=== PATIENT | female | born 1975 | race Caucasian/White ===

== ENCOUNTER 2021-02-18 14:58 | Emergency (ER) | payer SELFPAY ==
[2021-02-18 15:00] VITALS: BP 151/103; PULSE 81; RESP 18; TEMP 36.3; O2SAT 98; BMI 27.4
[2021-02-18 15:10] VITALS: O2SAT 99
--- NOTE | 2021-02-18 15:29 | EKG12_ITS ---
Test Reason : CP Blood Pressure : / mmHG Vent. Rate : 080 BPM Atrial Rate : 080 BPM P-R Int : 136 ms QRS Dur : 076 ms QT Int : 388 ms P-R-T Axes : 057 036 052 degrees QTc Int : 447 ms Normal sinus rhythm Normal ECG Confirmed by NADEEM INFANTE, ALONSO ([id number]), supervising film or videotape editor TITUS ALLEN ([id number]) on 02/20/2021 1:26:58 PM Referred By: MARTIN/KIET Confirmed By:ALONSO SILEVR MD
--- NOTE | 2021-02-18 15:34 | RAD_ITS ---
STUDY: X-RAY CHEST REASON FOR EXAM: Female, 45 years old. Chest pain TECHNIQUE: 1 view COMPARISON: None. FINDINGS: Cardiomediastinal silhouette is unremarkable. Costophrenic angles are sharp. Lungs are clear. The trachea is midline. There is no pneumothorax. The bones are grossly intact. RAD/Chest 1 View (Portable) IMPRESSION: No acute cardiopulmonary process. Electronically Signed: Ronnie Moser MD at 17:11 EST Tel , Service support ,
[2021-02-18 15:47] LABS: Absolute Lymphocyte Count 1.89 X10^3/uL (0.83-4.51); Absolute Neutrophil Count 4.2 X10^3/uL (2.0-7.7); Basophil# 0.04 X10^3/uL; Basophil% 0.6 % (0-1); Eosinophil# 0.13 X10^3/uL; Hematocrit 39.5 % (37-47); Hemoglobin 13.9 g/dL (12.0-15.0); Lymphocyte # 1.89 X10^3/ul (0.83-4.51); Lymphocyte % 28.4 % (19-41); Mean Corp Hgb Conc 35.2 g/dL (32-36); Mean Corpuscular Hgb 30.8 pg (27.0-32.0); Mean Corpuscular Volume 87.4 fL (81-99); Mean Platelet Vol. 11.1 fl (6.2-12.0); NRBC Flagged by Analyzer 0 % (0-5); Neutrophil # 4.18 X10^3/uL (2.7-7.7); Neutrophil % 62.7 % (47-70); Platelet Count 273 K/mm3 (150-450); RBC Distribution Width SD 41.1 fl (35.1-43.9); Red Blood Count 4.52 M/mm3 (4.2-5.4); White Blood Count 6.7 K/mm3 (4.4-11.0)
[2021-02-18 16:04] VITALS: BP 103/76; PULSE 73; RESP 15; O2SAT 99
[2021-02-18 16:05] LABS: AST(SGOT) 17 U/L (15-37); Alanine Aminotransfer ALT/SGPT 25 U/L (13-56); Albumin, Serum 3.9 g/dL (3.2-5.0); Alkaline Phosphatase 80 U/L (45-117); Anion Gap 7 (5-15); BUN 13 mg/dL (7-18); BUN/Creat Ratio 16.6 RATIO (10-20); Calcium,Total 9.1 mg/dL (8.5-10.1); Chloride 103 mmol/L (98-107); Creatinine, Serum 0.78 mg/dL (0.55-1.02); EST Glomerular Filtration Rate 85 mL/min (>60); Est Glom Filt Rate - Afr Amer 103 mL/min (>60); Estimated Creatinine Clearance 80.31 ml/min; Globulin 3.9 g/dL (2.2-4.2); Glucose 114 mg/dL (74-106); Potassium 3.5 mmol/L (3.5-5.1); Protein, Total 7.8 g/dL (6.4-8.2); Sodium Level 138 mmol/L (136-145)
--- NOTE | 2021-02-18 16:10 | EDS_ITS ---
HPI History of Present Illness Chief Complaint: Shortness of Breath Informant: patient Narrative Narrative: 45-year-old female states that since she has had COVID she has not felt right. But the past couple days she has felt her heart beating slower and stronger. Episodes lasting 20 to 30 minutes. She had that yesterday as well as this morning. She has had a persistent headache. She notes 1 episode of diarrhea this morning. She states that today while walking through [employer] she began to have a upper left chest discomfort that radiated to her arm that made her numb arm feel like the pain you get before goes to sleep. States those symptoms are better. Former smoker. She denies any leg swelling. No significant cough. No vomiting. Patient does note that she has been under significant amount of stress recently. PFSH PFSH Home Medications Serenity 180 mg PO/SL 02/18/21 [History Last Taken Unknown] Allergy/AdvReac Type Severity Reaction Status Date / Time Penicillins AdvReac Anaphylaxis Verified 02/18/21 15:07 Sulfa (Sulfonamide AdvReac Hives Verified 02/18/21 15:07 Antibiotics) sulfamethoxazole AdvReac Hives Verified 02/18/21 15:07 [From Bactrim] trimethoprim [From Bactrim] AdvReac Hives Verified 02/18/21 15:07 Social History Smoking Status: Former smoker ROS ROS ED Constitutional Constitutional ED: Denies chills or weight loss Eyes Eyes: Denies change in vision or diplopia ENT ENT ED: Denies ear pain, rhinorrhea or sore throat Cardiovascular Cardiovascular: Reports chest pain and palpitations; Denies orthopnea or racing heartbeat Respiratory/Chest Respiratory/Chest: Denies cough, dyspnea or orthopnea Gastrointestinal Gastrointestinal: Denies abdominal pain, diarrhea, nausea or vomiting Genitourinary Genitourinary ED: Denies dysuria, hematuria or urinary frequency Musculoskeletal Musculoskeletal: Reports other Details: Left arm pain ; Denies arthralgias or myalgias Integumentary Denies abscess or rash Neurologic Neurologic: Denies headache(s) or weakness Psychiatric Psychiatric: Denies anxiety, depression, suicidal ideation or suicidal thoughts Endocrine Endocrinology: Denies polydipsia, polyphagia or polyuria Allergic/Immunologic Allergic/Immunologic ED: Denies mouth swelling, tongue swelling or urticaria EXAM Physical Exam Const Vital Signs: 02/18/21 15:00 02/18/21 15:10 02/18/21 16:04 Temperature 97.4 F L Temperature Source Temporal Pulse Rate 81 73 Respiratory Rate 18 15 Respiratory Effort Normal Non-Labored Respiratory Depth Normal Respiratory Pattern Normal Blood Pressure 151/103 H 103/76 Blood Pressure Mean 119 85 Pulse Ox 98 99 Oxygen Delivery Method Room Air Room Air Room Air 02/18/21 17:07 Temperature Temperature Source Pulse Rate 74 Respiratory Rate 14 Respiratory Effort Respiratory Depth Respiratory Pattern Blood Pressure 120/84 H Blood Pressure Mean 96 Pulse Ox 98 Oxygen Delivery Method Room Air Positive well nourished and well developed General Appearance ED: well developed HEENT Reports normocephalic, head/scalp atraumatic, TM's clear and moist mucous membranes Negative for trauma Tympanic Membrane ED: Yes TM's clear Eyes PERRL and EOMs intact bilaterally Neck no lymphadenopathy, supple and no JVD Resp normal respiratory effort and clear to auscultation bilaterally Cardio regular rate, regular rhythm and no murmurs GI normal to inspection, nondistended, normoactive bowel sounds and non-tender Palpation: soft Back/Spine no CVA tenderness and normal ROM Extremity normal to inspection General Extremety ED: Negative for edema General Extremity: Negative for edema Neuro oriented x3 and CN's II-XII intact bilaterally Sensorium / Orientation: alert Motor Exam: strength 5/5 throughout Psych mental status grossly normal Mood & Affect: Negative for depressed or tearful Skin no rashes or lesions noted and no wounds MDM MDM MDM Narrative Medical decision making narrative: 2 sets of heart enzymes negative. D-dimer 0.32. CBC CMP showed a glucose of 114. Interpretation of chest x-ray is no acute process. She had no events on the monitor. At this point I think the patient can be discharged home. She does mention to me now that she had an echocardiogram about 14 years ago that showed mitral valve prolapse. Advised her since she may wish to have a repeat echo and possibly Holter monitor which she has done before. She is going to follow-up with her mom's primary care doctor or with cardiology. Lab Data Attestation: I reviewed the patient's lab results. Labs: Laboratory Results - last 24 hr 02/18/21 02/18/21 02/18/21 15:07 15:07 15:07 WBC 6.7 RBC 4.52 Hgb 13.9 Hct 39.5 MCV 87.4 MCH 30.8 MCHC 35.2 RDW Std Deviation 41.1 RDW Coeff of [place] 13.0 Plt Count 273 MPV 11.1 Immature Gran % (Auto) 0.300 Neut % (Auto) 62.7 Lymph % (Auto) 28.4 [place] % (Auto) 6.0 Eos % (Auto) 2.0 Baso % (Auto) 0.6 Absolute Neuts (auto) 4.2 Absolute Lymphs (auto) 1.89 Nucleated RBC % 0 D-Dimer Quant (PE/DVT) 0.32 Sodium 138 Potassium 3.5 Chloride 103 Carbon Dioxide 28.0 Anion Gap 7 BUN 13 Creatinine 0.78 Estim Creat Clear Calc 80.31 Est GFR (MDRD) Af Amer 103 Est GFR (MDRD) Non-Af 85 BUN/Creatinine Ratio 16.6 Glucose 114 H Calcium 9.1 Total Bilirubin 0.40 AST 17 ALT 25 Alkaline Phosphatase 80 Troponin I High Sens Total Protein 7.8 Albumin 3.9 Globulin 3.9 Albumin/Globulin Ratio 1.0 02/18/21 02/18/21 15:07 17:06 WBC RBC Hgb Hct MCV MCH MCHC RDW Std Deviation RDW Coeff of [place] Plt Count MPV Immature Gran % (Auto) Neut % (Auto) Lymph % (Auto) [place] % (Auto) Eos % (Auto) Baso % (Auto) Absolute Neuts (auto) Absolute Lymphs (auto) Nucleated RBC % D-Dimer Quant (PE/DVT) Sodium Potassium Chloride Carbon Dioxide Anion Gap BUN Creatinine Estim Creat Clear Calc Est GFR (MDRD) Af Amer Est GFR (MDRD) Non-Af BUN/Creatinine Ratio Glucose Calcium Total Bilirubin AST ALT Alkaline Phosphatase Troponin I High Sens < 3 L < 3 L Total Protein Albumin Globulin Albumin/Globulin Ratio Radiography Diagnostic Testing: Clinical Impression(s) from Imaging Studies Chest X-Ray 02/18/21 15:34 IMPRESSION: No acute cardiopulmonary process. Electronically Signed: Ronnie Moser MD at 17:11 EST Tel , Service support , EKG Initial EKG: Attestation: I personally reviewed and interpreted this EKG as follows: Comments: Normal sinus rhythm with a ventricular rate of 80 bpm Discharge Plan Triage Chief Complaint: Shortness of Breath ED Provider: Jeffry Thompson Dx/Rx/DC Orders Clinical Impression: Chest pain, Heart palpitations Instructions: ED Palpitations Prescriptions: No Action Serenity 180 mg PO/SL RF: 0 Primary Care Provider: Care Physician,No Primary Referrals: Schuyler Vizcarra MD [STAFF PHYSICIAN] - As soon as possible (for cardiology follow up) Care Physician,No Primary [Primary Care Provider] - Disposition Disposition: Home, Self Care
[2021-02-18 16:32] LABS: Troponin-I HS < 3 pg/mL (3.0-54.0)
[2021-02-18 16:34] LABS: D-Dimer Quantitative (DVT/PE) 0.32 FEU/ug/m (0.27-0.49)
[2021-02-18 17:07] VITALS: BP 120/84; PULSE 74; RESP 14; O2SAT 98
[2021-02-18 17:32] LABS: Troponin-I HS < 3 pg/mL (3.0-54.0)
[2021-02-18 17:47] VITALS: BP 129/98; PULSE 78; RESP 24; O2SAT 99
== END 2021-02-18 17:52 | disposition home or self-care (01) ==
PROVIDERS: Emergency Provider Emergency Medicine; Visit Provider Emergency Medicine
DX: R07.9 Chest pain, unspecified (principal); R00.2 Palpitations; R06.02 Shortness of breath; Z87.891 Personal history of nicotine dependence
CPT/HCPCS: 36415; 71045; 80053; 84484; 85025; 85379; 93005; 99283; A4216

== ENCOUNTER 2022-11-17 12:11 | Emergency (ER) | payer OTHER, SELFPAY ==
[2022-11-17 12:11] VITALS: BP 139/85; PULSE 95; RESP 22; TEMP 36.4; O2SAT 100; BMI 28.3
--- NOTE | 2022-11-17 12:25 | CT_ITS ---
EXAM: CT ABDOMEN AND PELVIS WITHOUT INTRAVENOUS CONTRAST CLINICAL INDICATION: right flank pain. PRIOR TUBIAL LIGATION TECHNIQUE: Helically acquired images were obtained of the abdomen and pelvis without intravenous contrast. This CT exam was performed using one or more of the following dose reduction techniques: automated exposure control, adjustment of the mA and/or kV according to patient size, and/or use of iterative reconstruction technique. COMPARISON: No relevant prior studies available. FINDINGS: LOWER THORAX: Normal. Lung bases are clear. No cardiomegaly. No pericardial effusion. ABDOMEN: LIVER: Normal. Homogeneous. PANCREAS: Normal. No focal cystic mass. SPLEEN: Normal. Normal size without focal cystic or solid mass. ADRENALS: Normal. No nodules. KIDNEYS AND URETERS: Several punctate stones noted within the left kidney. No evidence of urinary tract obstruction. 3.2 cm right adnexal lesion which appears to contain a hematocrit level suggestive of hemorrhagic ovarian cyst. STOMACH AND BOWEL: Normal. No bowel distention. No focal inflammatory change. PELVIS: APPENDIX: Appendix is visualized and normal in appearance. BLADDER: Normal. REPRODUCTIVE: See above. ABDOMEN and PELVIS: INTRAPERITONEAL SPACE: Physiological amount of free fluid noted within the pelvis. No free air. BONES/JOINTS: No suspicious lytic or blastic abnormality. SOFT TISSUES: Normal. No discrete abdominal or pelvic wall hernia. VASCULATURE: Normal. Abdominal aorta is non-dilated. LYMPH NODES: Normal. No enlarged lymph nodes. CT/Abdomen/Pelvis without Cont IMPRESSION: 1. No evidence of urinary tract stone disease. 2. 3.2 cm right adnexal lesion suggestive of hemorrhagic ovarian cyst. 3. Normal appendix. Electronically Signed: Maurice Kumar MD at 14:17 EDT ,
--- NOTE | 2022-11-17 12:26 | EX.ED.DYSGE1 ---
HPI History of Present Illness Chief Complaint: Flank Pain Informant: patient Onset/Context/Timing Onset: Yesterday Context: Gradual Onset Timing: Waxes and wanes Narrative Narrative: Patient presents secondary to right flank pain and low-grade fever that started yesterday. She does have a history of prior kidney stone. She denies dysuria. No significant cough or congestion. [facility] Medical History (Updated 11/17/22 @ 15:[address] Janine Paris MD) Kidney stone Home Medications Serenity 180 mg PO/SL 02/18/21 [History Last Taken Unknown] hydrocodone-acetaminophen 5-325mg 5mg-325mg 1 tab PO Q6H PRN PRN Pain 3 days #12 TABLETS 11/17/22 [Rx Last Taken Unknown] Allergy/AdvReac Type Severity Reaction Status Date / Time ibuprofen Allergy Intermediate EDEMA Verified 11/17/22 12:13 Latex, Natural Rubber Allergy Intermediate RASH Verified 11/17/22 12:13 Penicillins AdvReac Anaphylaxis Verified 02/18/21 15:07 Sulfa (Sulfonamide AdvReac Hives Verified 02/18/21 15:07 Antibiotics) sulfamethoxazole AdvReac Hives Verified 02/18/21 15:07 [From Bactrim] trimethoprim [From Bactrim] AdvReac Hives Verified 02/18/21 15:07 Surgical History History of tubal ligation Social History Smoking Status: Former smoker ROS ROS ED Constitutional Constitutional ED: Reports fever(s); Denies chills Eyes Eyes: Denies discharge from eye(s) ENT ENT ED: Denies discharge from eye(s), rhinorrhea or sore throat Cardiovascular Cardiovascular: Denies chest pain Respiratory/Chest Respiratory/Chest: Denies cough or dyspnea Gastrointestinal Gastrointestinal: Reports abdominal pain, nausea and vomiting; Denies diarrhea Genitourinary Genitourinary ED: Denies dysuria Musculoskeletal Musculoskeletal: Reports back pain and myalgias; Denies extremity pain Integumentary Denies Abrasions or rash Neurologic Neurologic: Denies headache(s) or weakness Psychiatric Psychiatric: Denies anxiety or depression Allergic/Immunologic Allergic/Immunologic ED: Denies lip swelling or urticaria EXAM Physical Exam Const Vital Signs: 11/17/22 12:11 11/17/22 15:10 Temperature 97.6 F L Temperature Source Temporal Pulse Rate 95 77 Respiratory Rate 22 H 16 Blood Pressure 139/85 H 113/82 H Blood Pressure Mean 103 92 Pulse Ox 100 98 Oxygen Delivery Method Room Air Room Air Positive well nourished and well developed General Appearance ED: well developed HEENT Reports normocephalic and head/scalp atraumatic Eyes PERRL and EOMs intact bilaterally Neck supple Chest Wall inspection of chest normal and palpation of chest normal Resp normal respiratory effort and clear to auscultation bilaterally Cardio regular rate and regular rhythm GI non-tender Auscultation: hypoactive bowel sounds Palpation: soft Back/Spine General Back: CVA tenderness right Extremity normal to inspection Neuro oriented x3 and no sensory deficits noted Sensorium / Orientation: alert Motor Exam: strength 5/5 throughout Psych mental status grossly normal Skin no rashes or lesions noted MDM MDM MDM Narrative Medical decision making narrative: IV line established. Patient given morphine and Zofran for pain and nausea. Labwork obtained to evaluate for leukocytosis, anemia, and electrolyte derangement. Urinalysis obtained to evaluate for infection/hematuria. CT flank obtained to evaluate for possible kidney stone versus pyelonephritis. History & Record Review Discussion w/independent historian: Patient and Family Lab Data Attestation: I reviewed the patient's lab results. Labs: Laboratory Results - last 24 hr 11/17/22 11/17/22 12:35 14:00 WBC 5.0 RBC 4.44 Hgb 13.6 Hct 41.6 MCV 93.7 MCH 30.6 MCHC 32.7 RDW Std Deviation 43.0 RDW Coeff of [place] 12.6 Plt Count 164 MPV 11.1 Immature Gran % (Auto) 0.800 Neut % (Auto) 69.6 Lymph % (Auto) 14.7 L [place] % (Auto) 14.1 H Eos % (Auto) 0.4 Baso % (Auto) 0.4 Absolute Neuts (auto) 3.5 Absolute Lymphs (auto) 0.73 L Nucleated RBC % 0 Sodium 133 L Potassium 3.7 Chloride 102 Carbon Dioxide 26.0 Anion Gap 5 BUN 11 Creatinine 0.72 Estim Creat Clear Calc 85.20 Est GFR (MDRD) Af Amer 112 Est GFR (MDRD) Non-Af 93 BUN/Creatinine Ratio 15.3 Glucose 85 Calcium 8.9 Serum , Qual NEGATIVE Urine Color Yellow Urine Clarity Clear Urine pH 5.0 Ur Specific [place] 1.025 Urine Protein 30 H Urine Glucose (UA) Normal Urine Ketones 50 H Urine Occult Blood 10 H Urine Nitrite Negative Urine Bilirubin Negative Urine Urobilinogen Normal Ur Leukocyte Esterase Negative Urine RBC 0 SEEN Urine WBC 0-5 SEEN Ur Squamous Epith Cells 0-5 SEEN Urine Bacteria 0 SEEN Urine Mucus 0 SEEN Radiography Diagnostic Testing: Clinical Impression(s) from Imaging Studies Abdomen/Pelvis CT 11/17/22 12:25 IMPRESSION: 1. No evidence of urinary tract stone disease. 2. 3.2 cm right adnexal lesion suggestive of hemorrhagic ovarian cyst. 3. Normal appendix. Electronically Signed: Maurice Kumar MD at 14:17 EDT , Treatment and Re-Evaluation :: Patient given morphine and Zofran along with IV fluids. COVID test returns positive. CBC was normal white count at 5.0 with a normal differential. Chemistry studies unremarkable. test negative. Urinalysis reveals no evidence of infection and no hematuria. CT flank reveals no evidence of urinary tract stone disease. A few small stones are noted in the left kidney. There is a 3.2 cm right adnexal lesion to the hemorrhagic cyst. I do believe this is the source of the patient's pain. Test results are discussed with her and significant other at bedside. She will be given a prescription for [place] at home. She will continue supportive care. Discharge Plan Triage Chief Complaint: Flank Pain ED Provider: Janine Paris Dx/Rx/DC Orders Clinical Impression: COVID-19, Ovarian cyst Instructions: Coronavirus Disease 2019 (COVID-19): Overview, Coronavirus Disease 2019 (COVID-19): Caring for Yourself or Others, ED Ovarian Cyst Prescriptions: New hydrocodone-acetaminophen 5-325 mg tablet 1 tab PO Q6H PRN PRN (Reason: Pain) 3 Days Qty: 12 0RF No Action Serenity 180 mg PO/SL Primary Care Provider: Care Physician,No Primary Referrals: Delfina Serrano MD [Med Staff - Project Accountant] - As Needed Care Physician,No Primary [Primary Care Provider] - Disposition Disposition: Home, Self Care
[2022-11-17 12:42] LABS: Absolute Lymphocyte Count 0.73 X10^3/uL (0.83-4.51); Absolute Neutrophil Count 3.5 X10^3/uL (2.0-7.7); Basophil# 0.02 X10^3/uL; Basophil% 0.4 % (0-1); Eosinophil# 0.02 X10^3/uL; Eosinophils% 0.4 % (0-5); Hematocrit 41.6 % (37-47); Hemoglobin 13.6 g/dL (12.0-15.0); Lymphocyte # 0.73 X10^3/ul (0.83-4.51); Lymphocyte % 14.7 % (19-41); Mean Corp Hgb Conc 32.7 g/dL (32-36); Mean Corpuscular Hgb 30.6 pg (27.0-32.0); Mean Corpuscular Volume 93.7 fL (81-99); Mean Platelet Vol. 11.1 fl (6.2-12.0); Monocyte% 14.1 % (0-10); NRBC Flagged by Analyzer 0 % (0-5); Neutrophil # 3.45 X10^3/uL (2.7-7.7); Neutrophil % 69.6 % (47-70); Platelet Count 164 K/mm3 (150-450); RBC Distribution Width CV 12.6 % (11.6-14.6); Red Blood Count 4.44 M/mm3 (4.2-5.4)
[2022-11-17] MEDS: 0.9% Normal Saline (1000mL) 1,000 ML 150 ML IV (12:48)
[2022-11-17] MEDS: Morphine 4 MG/ML Syringe IV (12:49)
[2022-11-17] MEDS: Ondansetron 4 MG/2 ML Vial IV (12:49)
[2022-11-17 12:57] LABS: Anion Gap 5 (5-15); BUN 11 mg/dL (7-18); BUN/Creat Ratio 15.3 RATIO (10-20); Calcium,Total 8.9 mg/dL (8.5-10.1); Chloride 102 mmol/L (98-107); Creatinine, Serum 0.72 mg/dL (0.55-1.02); EST Glomerular Filtration Rate 93 mL/min (>60); Est Glom Filt Rate - Afr Amer 112 mL/min (>60); Glucose 85 mg/dL (74-106); Potassium 3.7 mmol/L (3.5-5.1); Sodium Level 133 mmol/L (136-145)
[2022-11-17 12:59] LABS: Internal QC Validated? YES +Cl - CLEAR BKGD; Pregnancy, Serum, hCG Quali. NEGATIVE Negative; Record Kit Lot#, Serum Preg. 667200
[2022-11-17 14:08] LABS: Bacteria 0 SEEN /hpf (None Seen); Mucous, Urine 0 SEEN /hpf (<or=2+); Red Blood Cells-Urine 0 SEEN /hpf (0-5)
[2022-11-17 14:16] LABS: Color, Urine Yellow (Yellow); Glucose, Dipstick Normal (Normal); Ketone-Dipstick 50 mg/dl (Negative); Leukocyte Esterase-Dipstick Negative /ul (Negative); Nitrite-Dipstick Negative (Negative); Occult Blood-Urine 10 /ul (Negative); Protein-Dipstick 30 mg/dl (Negative); Specific Gravity, Urine 1.025 (1.002-1.030); Urine Bilirubin Dipstick Negative (Negative); Urine Clarity Clear (Clear); Urine Urobilinogen Normal (Normal)
[2022-11-17 14:41] LABS: Squamous Epithelial Cells - UA 0-5 SEEN /hpf (5-10); White Blood Cells 0-5 SEEN /hpf (0-5)
[2022-11-17 15:10] VITALS: BP 113/82; PULSE 77; RESP 16; O2SAT 98
== END 2022-11-17 15:22 | disposition home or self-care (01) ==
PROVIDERS: Emergency Provider Emergency Medicine; Visit Provider Emergency Medicine
DX: N83.201 Unspecified ovarian cyst, right side (principal); U07.1 COVID-19; Z87.891 Personal history of nicotine dependence; Z87.442 Personal history of urinary calculi
CPT/HCPCS: 74176; 80048; 81001; 84703; 85025; 87428; 96361; 96374; 96375; 99283; J2405

== ENCOUNTER → 2022-12-16 | Outpatient (CLI) | payer OTHER, SELFPAY ==
[2022-12-16 12:44] LABS: HIV - WCH Non-Reactive (Nonreactive); Hepatitis C Antibody Non-Reactive (Nonreactive); Syphilis Antibodies Non-reactive
[2022-12-18 21:07] LABS: Chlamydia By Nucleic Acid AMP Negative (Negative); Gonococcus By Nucleic Acid AMP Negative (Negative)
[2022-12-20 14:09] LABS: HPV APTIMA, High Risk Negative (Negative)
== END | disposition home or self-care (01) ==
PROVIDERS: Referring Provider Nurse Practitioner Women's Health; Visit Provider Nurse Practitioner Women's Health
DX: Z12.4 Encounter for screening for malignant neoplasm of cervix (principal); A60.00 Herpesviral infection of urogenital system, unspecified; Z20.2 Contact with and (suspected) exposure to infections with a predominantly sexual mode of transmission
CPT/HCPCS: 36415; 86703; 86780; 86803; 87491; 87591; 87624; 88175; G0145

== ENCOUNTER → 2022-12-23 | Outpatient (CLI) | payer OTHER, SELFPAY ==
--- NOTE | 2022-12-23 07:14 | BI_ITS ---
MAMMOGRAPHY - BILATERAL SCREENING REASON FOR EXAM: Female, 47 years old. Routine annual screening examination. PERTINENT HISTORY: Non-contributory. History of prior left excisional breast biopsy. TECHNIQUE: Digital bilateral breast dheeraj (3D mammographic acquisition) in the CC and MLO projections. 2-D mediolateral oblique (MLO) and craniocaudad (CC) views of both breasts were obtained. CAD: Full Field Digital Mammography with Computer Added Detection was performed. COMPARISON: No comparison mammograms available at this time. If any prior films become available, an addendum to this report can be generated. FINDINGS: Breast Composition: The breasts are extremely dense, which lowers the sensitivity of mammography. There are no dominant masses or suspicious calcifications. Small benign-appearing fat-containing axillary lymph nodes. No other significant abnormalities are identified. BI/SCRN MAMM (CAD)W/DHEERAJ BILAT IMPRESSION: Negative screening mammogram. Yearly followup mammogram recommended. (A) ASSESSMENT CATEGORY: BIRADS Category 2: Benign. A letter regarding these results will be sent to the patient by the facility within 30 days. Approximately 10% of breast cancers are not detected by mammography. A normal mammogram should not delay biopsy of a clinically suspicious abnormality. [id number] Electronically Signed: Ja Real MD at 8:42 EST ,
[2022-12-23 08:31] LABS: Cholesterol 227 mg/dL (200); Glucose 99 mg/dL (74-106); High Density Lipoprotein 56 mg/dL; Thyroid Stim Hormone (TSH) 0.85 uIU/mL (0.358-3.74); Triglycerides 94 mg/dL; Very Low Density Lipoprotein 19 mg/dL (5-40)
[2022-12-23 09:58] LABS: Vitamin D,25 Hydroxy 37.2 ng/mL
== END | disposition home or self-care (01) ==
PROVIDERS: Referring Provider Nurse Practitioner Women's Health; Visit Provider Nurse Practitioner Women's Health
DX: Z12.31 Encounter for screening mammogram for malignant neoplasm of breast (principal); Z13.220 Encounter for screening for lipoid disorders; Z13.29 Encounter for screening for other suspected endocrine disorder; Z13.21 Encounter for screening for nutritional disorder; Z13.1 Encounter for screening for diabetes mellitus
CPT/HCPCS: 36415; 77063; 77067; 80061; 82306; 82947; 84443

== ENCOUNTER → 2023-01-08 | Outpatient (CLI) | payer OTHER, SELFPAY ==
--- NOTE | 2023-01-08 12:47 | US_ITS ---
INDICATION: pain EXAMINATION: Ultrasound US Pelvis Non OB Limited With Transvaginal Imaging TECHNIQUE: Transabdominal pelvic ultrasound was performed. Grayscale, spectral waveform, and color flow Doppler evaluation of the adnexa. COMPARISON: CT abdomen and pelvis November 17, 2022. FINDINGS: UTERUS: The uterus measures 6.1 x 8.0 x 11.2 cm for total volume of 287 mL. Heterogeneous myometrium throughout with a left, fundal, heterogeneous, mildly hyperechoic mass measuring 2.2 x 2.5 x 2.4 cm consistent with a myometrial fibroid. No other well delineated fibroids demonstrated. The endometrial stripe measures 8 mm in AP diameter which is within normal limits. RIGHT OVARY: 3.5 x 2.2 x 2.3 cm.. Non-enlarged, normal echogenicity. Note of a dominant, 1.9 x 1.6 x 1.8 cm anechoic follicle. There is normal arterial inflow and venous outflow present in the right ovary. LEFT OVARY: Only visualized on transabdominal images. 4.2 x 1.6 x 1.1 cm. Non-enlarged, normal echogenicity. There is normal arterial inflow and venous outflow present in the left ovary. FREE FLUID: None. Urinary bladder is filled with anechoic fluid and normal in appearance. US/Pelvic (Non ) IMPRESSION: 1. Mildly enlarged uterus, 287 mL volume with a single, visualized, roughly 2.4 cm myometrial fibroid. 2. Physiologic appearance bilateral ovaries. Electronically Signed: Alvin Bajwa DO at 23:50 EST ,
== END | disposition home or self-care (01) ==
PROVIDERS: Referring Provider Nurse Practitioner Women's Health; Visit Provider Nurse Practitioner Women's Health
DX: R10.2 Pelvic and perineal pain (principal)
CPT/HCPCS: 76830; 76856

== ENCOUNTER → 2023-02-26 | Outpatient (CLI) | payer OTHER, SELFPAY ==
--- OUTSIDE RECORDS SUMMARY | 2023-02-26 11:56 | XMS RPT_ITS | CCD ---
Author Name Unknown Address [id number] [facility] [address] [place] [address] Organization [facility] Care Team Providers Care Talent Acquisition Program Manager Name Role Phone Jer Peña MD Unavailable [phone] Unavailable Primary Care Provider Unavailabl e Allergies Allergy Classification Reported Allergen(s) Allergy Type Date of Onset Reaction(s) Facility (1 source) Diclofenac Drug Allergy 0 [facility] Work Phone: (1 source) House dust mite; Translations: [DUST MITES] allergy to substance 0 [facility] Work Phone: (1 source) Mold Extract Drug Allergy 0 [facility] Work Phone: (1 source) Penicillin Drug Allergy 0 [facility] Work Phone: (1 source) Sulfacetamide Drug Allergy 0 [facility] Work Phone: (1 source) Ibuprofen Drug Allergy 3 Swelling [facility] (1 source) Latex Drug Allergy 3 Rash [facility] (1 source) Penicillin G Drug Allergy 3 Anaphylaxis [facility] (1 source) Penicillin V Drug Allergy 2 Anaphylaxis [facility] (1 source) Sulfonamides (Antibiotic) Drug Allergy 3 Anaphylaxis [facility] Medications Completed/Discontinued Medications Medication Drug Class(es) Dates Sig (Normalized) Sig (Original) ASPIRIN-ACETAMINO PHEN-CAFFEINE TABS (1 source) Platelet Aggregation Inhibitor, Nonsteroidal Anti-inflammatory Drug, Central Nervous System Stimulant, Methylxanthine Start: 04-21-2019 EXCEDRIN EXTRA STRENGTH TABS two tablets twice per day as needed ASPIRIN-ACETAMINOP HEN-CAFFEINE TABS [id number] Jer Peña MD meloxicam 7.5 mg oral tablet (1 source) Nonsteroidal Anti-inflammatory Drug Start: 04-21-2019 MELOXICAM 7.5 MG TABS one tablet daily MELOXICAM [id number] Jer Peña MD Problems Active Problems Problem Classification Problem Date Documented Da te Episodic/Chronic Abdominal pain (1 source) Flank pain; Translations: [Unspecified abdominal pain] 11-17-2022 Episodic Spondylosis; intervertebral disc disorders; other back problems (1 source) Low back pain; Translations: [Low back pain without sciatica, unspecified back pain laterality, unspecified chronicity] 11-17-2022 Episodic Sprains and strains (1 source) Other specified sprain of left wrist, initial encounter; Translations: [Other specified sprain of left wrist, initial encounter] Onset: 04-21-2019 04-21-2019 Episodic Past or Other Problems Problem Classification Problem Date Documented Da te Episodic/Chronic Unclassified (1 source) Problem Results Test Name Value Interpretation Reference Range Facil ity Vital Signs Date Time Vital Sign Value Performing Clinician Facility 11-17-2022 11:55-0400 Body temperature 100.71 [degF] Ange Vargas APRN.CNP Work Phone: [facility] 11-17-2022 11:55-0400 Body weight 74.3 kg Ange Vargas APRN.OCCUPATIONAL SAFETY SPECIALIST Work Phone: [facility] 11-17-2022 11:55-0400 Diastolic blood pressure 80 mm[Hg] Ange Vargas APRN.CNP Work Phone: [facility] 11-17-2022 11:55-0400 Heart rate 97 /min Ange Vargas APRN.OCCUPATIONAL SAFETY SPECIALIST Work Phone: [facility] 11-17-2022 11:55-0400 Respiratory rate 21 /min Ange Vargas APRN.OCCUPATIONAL SAFETY SPECIALIST Work Phone: [facility] 11-17-2022 11:55-0400 SaO2% (BldA) [Mass fraction] 98 % Ange Sam REN.OCCUPATIONAL SAFETY SPECIALIST Work Phone: [facility] 11-17-2022 11:55-0400 Systolic blood pressure 128 mm[Hg] Ange Vargas APRN.OCCUPATIONAL SAFETY SPECIALIST Work Phone: [facility] NEGATED: Highlighted [id number] 09:30-0400 BMI (Body Mass Index) 26.01 kg/m2 Bharat Vernon COMPUTERIZED TABLE CUTTER [facility] Work Phone: NEGATED: Highlighted [id number] 09:30-0400 Body weight 68.49 kg Bharat Vernon COMPUTERIZED TABLE CUTTER [facility] Work Phone: NEGATED: Highlighted [id number] 09:30-0400 Body weight 69 kg Bharat Vernon COMPUTERIZED TABLE CUTTER [facility] Work Phone: NEGATED: Highlighted [id number] 09:30-0400 BP Diastolic 98 mm[Hg] Bharat Vernon COMPUTERIZED TABLE CUTTER [facility] Work Phone: NEGATED: Highlighted [id number] 09:30-0400 BP Diastolic 89 mm[Hg] Bharat Saulo COMPUTERIZED TABLE C[employer] [facility] Work Phone: NEGATED: Highlighted [id number] 09:30-0400 BP Systolic 136 mm[Hg] Bharat Vernon COMPUTERIZED TABLE C[employer]TER [facility] Work Phone: NEGATED: Highlighted [id number] 09:30-0400 BP Systolic 129 mm[Hg] Bharat Vernon COMPUTERIZED TABLE C[employer]TER [facility] Work Phone: NEGATED: Highlighted [id number] 09:30-0400 Height 162.56 cm Bharat Vernon COMPUTERIZED TABLE C[employer]TER [facility] Work Phone: NEGATED: Highlighted [id number] 09:30-0400 Height 163 cm Bharat Vernon COMPUTERIZED TABLE C[employer]TER [facility] Work Phone: NEGATED: Highlighted [id number] 09:30-0400 Pulse (Heart Rate) 81 /min Bharat Vernon LPN [facility] Work Phone: Encounters Encounter Date Encounter Type Care Provider Facility Start: 11-17-2022 End: 11-17-2022 ambulatory Facility:[facility] Start: 11-17-2022 End: 11-17-2022 Patient encounter procedure Ange Vargas APRN.OCCUPATIONAL SAFETY SPECIALIST Work Phone: [facility] Procedures Date Procedure Procedure Detail Performing Clinician Start: 11-17-2022 Urnls dip stick/tabl et rgnt auto w/o microscopy nAge Vargas APRN.OCCUPATIONAL SAFETY SPECIALIST Work Phone: NEGATED: Highlighted rowStart: 04-21-2019 End: 04-21-2019 Documentation of current medications Bharat Vernon LPN NEGATED: Highlighted rowStart: 04-21-2019 End: 04-21-2019 Smoking cessation education Bharat Vernon LPN Plan of Treatment Date Care Activity Detail Author Start: 10-11-2022 Influenza vaccination Influenza Vaccine (#1) [facility] Start: 2022 Cologuard (FIT-DNA) Cologuard (FIT-DNA) [facility] Start: 2022 Colonoscopy Colonoscopy [facility] Start: 2022 Colorectal Cancer Screening Colorectal Cancer Screening [facility] Start: [address] COLONOGRAPHY [facility] Start: 2022 Diabetes Screening Diabetes Screening [facility] Start: 2022 Fecal Occult Blood Fecal Occult Blood [facility] Start: 2022 Lipid 1996 panel - Serum or Plasma Lipid Screening [facility] Start: 2022 SIGMOIDOSCOPY SIGMOIDOSCOPY [facility] Start: 02-10-2022 Depression Assessment Depression Assessment [facility] Start: 04-21-2019 End: 04-21-2019 Appointment Appointment [facility] Work Phone: Start: 04-21-2019 End: 04-21-2019 Radex wrist complete minimum 3 views XR WRIST 3 VWS-LT [facility] Work Phone: Start: 2017 Mammography Mammogram Screening [facility] Start: 04-18-2007 HPV Testing HPV Testing [facility] Start: 1998 Pap Testing Pap Testing [facility] Start: 1996 Urine microalbumin profile DTaP,Tdap,Td Vaccine (1 - Tdap) [facility] Start: 04-18-1995 Hepatitis C Screening Hepatitis C Screening [facility] Start: 04-18-1995 HIV Screening HIV Screening [facility] Start: 04-18-1983 Pneumococcal vaccination Pneumococcal Vaccine (1 - PCV) [facility] Start: 1977 Covid-19 Vaccine (#1) Covid-19 Vaccine (#1) [facility] Start: 1977 Hepatitis B Vaccine (1 of 3 - 3-dose series) Hepatitis B Vaccine (1 of 3 - 3-dose series) [facility] Patient Education \cps-sql1\CPS_ PtEducatio n\quitting_smoking_[id number].pdf, \cps-sql1\CPS_PtEducatio n\htn.pdf [facility] Work Phone: Payers Date Payer Category Payer Private Health Insurance [facility] [employer] [facility] [id number] 2022-Present [phone] [address] [place] [address] PPO [id number] 2022 Private Health Insurance [id number] Social History Date Type Detail Facility Start: 11-17-2022 Tobacco smoking status NHIS Smokes tobacco daily [facility] History of tobacco use Cigarette Smoker [facility] History of tobacco use Passive smoker [facility] Start: 11-17-2022 Tobacco use and exposure Smokeless tobacco non-user [facility] Start: 11-17-2022 History of Social function [facility] Start: 11-17-2022 Tobacco use panel [facility] Start: 1975 Sex Assigned At Not on file [facility] NEGATED: Highlighted rowStart: 04-21-2019 End: 04-21-2019 Alcohol use Alcohol use [facility] Work Phone: NEGATED: Highlighted rowStart: 04-21-2019 End: 04-21-2019 Assertion Current every day smoker [facility] Work Phone: NEGATED: Highlighted rowStart: 04-21-2019 End: 04-21-2019 Details of drug misuse behavior Details of drug misuse behavior [facility] Work Phone: NEGATED: Highlighted rowStart: 04-21-2019 End: 04-21-2019 Employment detail Employment detail [facility] Work Phone: NEGATED: Highlighted rowStart: 04-21-2019 End: 04-21-2019 How many days of moderate to strenuous exercise, like a brisk walk, did you do in the last 7 days? How many days of moderate to strenuous exercise, like a brisk walk, did you do in the last 7 days? [facility] Work Phone: NEGATED: Highlighted rowStart: 04-21-2019 End: 04-21-2019 Tobacco use and exposure Tobacco use and exposure [facility] Work Phone: Progress note 11-17-2022 Note Date & Type Note Facility 11-17-2022 Note HNO ID: [id number] Author: Ange Vargas APRN.OCCUPATIONAL SAFETY SPECIALIST Service: ? Author Type: Nurse Practitioner Type: Progress Notes Filed: 11/17/2022 12:07 PM Note Text: Came in with complaints of right flank pain. Patient has had kidney infections before. Patient says it feels the same. Patient says its only been going on for about a day but she does have a fever and she is vomiting. Barely touched patient's back and she was in extreme pain. At this time she is being sent to the emergency room for full evaluation partner will take her. Also instructed her to get set up with a urologist or kidney doctor up here and primary care. [facility] [place] History of Present illness Narrative 11-17-2022 Ange Vargas APRN.OCCUPATIONAL SAFETY SPECIALIST - 11/17/2022 12:06 PM EDT Note Date & Type Note Facility 11-17-2022 History of Presen t illness Narrative Came in with complaints of right flank pain. Patient has had kidney infections before. Patient says it feels the same. Patient says its only been going on for about a day but she does have a fever and she is vomiting. Barely touched patient's back and she was in extreme pain. At this time she is being sent to the emergency room for full evaluation partner will take her. Also instructed her to get set up with a urologist or kidney doctor up here and primary care. documented in this encounter [facility] Evaluation note Note Date & Type Note Facility documented in this encounter [facility] Chief Complaint Chief Complaint Description Start Date left wrist pain Preliminary chief co mplaint data, not yet signed by the author as of Instructions Instruction Description Start Date Please follow-up with Primar y Care Physician or Roll Icer for treatment or adjustment of medication regarding elevated blood pressure.Patient advised to follow-up with Primary Care Physician for BMI management. Advance Directives There may be information available, but it has not been provided by the sender. No Advanced Directives Records Found Assessments There may be information available, but it has not been provided by the sender. Review of System There may be information available, but it has not been provided by the sender. Family History There may be information available, but it has not been provided by the sender.No Family History Records Found History of Present Illness There may be information available, but it has not been provided by the sender. Summary Purpose Additional Source Comments Reason for Visit (unrecogniz ed section and content) Reason Comments Kidney Problem Possible kidney infe ction, lower back pain, fever, sore throat x 1 day Source Comments (unrecognize d section and content) In the event this informatio n is protected by the Federal Confidentiality of Alcohol and Drug Abuse Patient Records regulations: The Federal rules restrict any use of the information to criminally investigate or prosecute any alcohol or drug abuse patient.[facility] INFORMATION SOURCE (unrecogn ized section and content) FOR RECORDS PERTAINING TO PATIENTS WHO ARE OR HAVE BEEN ENROLLED IN A CHEMICAL DEPENDENCY/SUBSTANCEABUSE PROGRAM, SOME INFORMATION MAY BE OMITTED. This clinical summary was aggregated from multiple sources. Caution should be exercised in using it in the provision of clinical care. This summary normalizes information from multiple sources, and as a consequence, information in this document may materially change the coding, format and clinical context of patient data. In addition, data may be omitted in some cases. CLINICAL DECISIONS SHOULD BE BASED ON THE PRIMARY CLINICAL RECORDS. [employer] [facility]. provides no warranty or guarantee of the accuracy or completeness of information in this document.
[2023-02-26 15:16] LABS: Absolute Lymphocyte Count 2.04 X10^3/uL (0.83-4.51); Absolute Neutrophil Count 3.8 X10^3/uL (2.0-7.7); Basophil# 0.03 X10^3/uL; Basophil% 0.5 % (0-1); Eosinophil# 0.15 X10^3/uL; Eosinophils% 2.3 % (0-5); Hemoglobin 12.5 g/dL (12.0-15.0); Lymphocyte # 2.04 X10^3/ul (0.83-4.51); Lymphocyte % 31.2 % (19-41); Mean Corp Hgb Conc 32.1 g/dL (32-36); Mean Corpuscular Hgb 29.8 pg (27.0-32.0); Mean Corpuscular Volume 93.1 fL (81-99); Mean Platelet Vol. 11.3 fl (6.2-12.0); Monocyte# 0.53 X10^3/uL; Monocyte% 8.1 % (0-10); NRBC Flagged by Analyzer 0 % (0-5); Neutrophil # 3.75 X10^3/uL (2.7-7.7); Neutrophil % 57.3 % (47-70); Platelet Count 214 K/mm3 (150-450); RBC Distribution Width SD 44.1 fl (35.1-43.9); Red Blood Count 4.19 M/mm3 (4.2-5.4); White Blood Count 6.5 K/mm3 (4.4-11.0)
[2023-02-26 16:07] LABS: Vitamin B12 289 pg/mL (211-911); Vitamin D,25 Hydroxy 30.6 ng/mL
[2023-02-26 16:10] LABS: AST(SGOT) 17 U/L (15-37); Alanine Aminotransfer ALT/SGPT 32 U/L (13-56); Albumin, Serum 3.8 g/dL (3.2-5.0); Alkaline Phosphatase 93 U/L (45-117); Anion Gap 6 (5-15); BUN 18 mg/dL (7-18); BUN/Creat Ratio 25.8 RATIO (10-20); CRP, High Sensitivity Cardiac 2.49 mg/L; Calcium,Total 8.9 mg/dL (8.5-10.1); Chloride 107 mmol/L (98-107); EST Glomerular Filtration Rate 96 mL/min (>60); Est Glom Filt Rate - Afr Amer 116 mL/min (>60); Ferritin 20 ng/mL (8-252); Globulin 3.7 g/dL (2.2-4.2); Glucose 75 mg/dL (74-106); Magnesium 1.9 mg/dL (1.6-2.6); Potassium 3.8 mmol/L (3.5-5.1); Protein, Total 7.5 g/dL (6.4-8.2); Sodium Level 139 mmol/L (136-145); Thyroid Stim Hormone (TSH) 1.46 uIU/mL (0.358-3.74)
== END | disposition home or self-care (01) ==
LOC: MFPLAB 11:38
PROVIDERS: PCP Family Medicine; Visit Provider Family Medicine
DX: R00.2 Palpitations (principal)
CPT/HCPCS: 36415; 80053; 82306; 82607; 82728; 83735; 84443; 85025; 86141

== ENCOUNTER → 2023-04-03 | Outpatient (CLI) | payer OTHER, SELFPAY ==
--- NOTE | 2023-04-03 12:52 | ECHOD_ITS ---
Version 2 Reason For Study: PALPITATIONS Procedure This was a 2D Doppler, Color Flow transthoracic echocardiogram. Exam performed in department. Left Ventricle Normal LV size. Left ventricular systolic function is normal. The estimated ejection fraction is 60 %. Stage 1 diastolic dysfunction. No regional wall motion abnormalities noted. Right Ventricle Normal RV size. Normal systolic function. Atria Normal left atrium. Normal right atrium. Mitral Valve Normal mitral valve. Tricuspid Valve Normal tricuspid valve. Mild tricuspid valve insufficiency. Pulmonary artery systolic pressure is 30 mmHg. Aortic Valve Trisinus/trileaflet aortic valve. Pulmonic Valve Normal pulmonic valve. Great Vessels Normal aortic root. The pulmonary artery is normal size. Normal inferior vena cava. Pericardium/Pleural No pericardial effusion. MMode/2D Measurements & Calculations LVIDd: 5.5 cm IVSd: 0.85 cm Ao root diam: 3.0 cm LVIDs: 3.3 cm LVPWd: 0.85 cm RVDd: 2.8 cm FS: 39.1 % LAV(MOD-bp): 50.5 ml LVAd ap4: 25.8 cm2 LVAd ap2: 24.1 cm2 LAV(MOD-bp) Indexed: 27.8 ml/m2 LVLd ap4: 7.4 cm LVLd ap2: 7.5 cm LAV(MOD-sp2): 50.1 ml EDV(MOD-sp4): 78.1 ml EDV(MOD-sp2): 69.6 ml LAV(MOD-sp4): 50.4 ml EDV(sp4-el): 76.8 ml EDV(sp2-el): 65.8 ml LVAs ap4: 15.0 cm2 LVAs ap2: 13.8 cm2 LVLs ap4: 5.9 cm LVLs ap2: 5.6 cm ESV(MOD-sp4): 32.1 ml ESV(MOD-sp2): 29.5 ml ESV(sp4-el): 32.4 ml ESV(sp2-el): 28.6 ml EF(MOD-sp4): 58.8 % EF(MOD-sp2): 57.6 % EF(sp4-el): 57.8 % SV(MOD-sp4): 46.0 ml SV(MOD-sp2): 40.1 ml SV(sp4-el): 44.3 ml LA dimension(2D): 3.5 cm LA A4 area: 17.9 cm2 RA A4 area: 16.0 cm2 TAPSE: 1.9 cm Time Measurements MV dec time: 0.24 sec Doppler Measurements & Calculations MV E max jon: 65.8 cm/sec Lat Peak E' Jon: 15.8 cm/sec Med Peak E' Jon: 7.8 cm/sec MV A max jon: 80.9 cm/sec E/E' lat: 4.2 E/E' med: 8.5 MV E/A: 0.81 MV V2 max: 84.2 cm/sec MV P1/2t max jon: 84.2 cm/sec Ao V2 max: 118.4 cm/sec MV max P.8 mmHg MV P1/2t: 81.5 msec Ao max P.6 mmHg MV V2 mean: 53.1 cm/sec MV dec slope: 302.5 cm/sec2 Ao V2 mean: 85.2 cm/sec MV mean P.2 mmHg Ao mean P.2 mmHg MV V2 VTI: 23.1 cm MVA(P1/2t): 2.7 cm2 Ao V2 VTI: 28.0 cm AV (velocity ratio): 0.78 LV V1 max: 101.0 cm/sec PA V2 max: 107.3 cm/sec TR max jon: 251.9 cm/sec LV V1 max P.1 mmHg PA V2 mean: 69.9 cm/sec TR max P.4 mmHg LV V1 mean P.1 mmHg LV V1 mean: 68.2 cm/sec LV V1 VTI: 21.8 cm ECHO/Echo Complete Interpretation Summary Normal LV size. Left ventricular systolic function is normal. The estimated ejection fraction is 60 %. Stage 1 diastolic dysfunction. Pulmonary artery systolic pressure is 30 mmHg. Ordering Physician: Christiana Vegas Referring Physician: Christiana Vegas Performed By: Mary Liam, CHENTE, RVT
== END | disposition home or self-care (01) ==
LOC: CVS 12:51
PROVIDERS: PCP Family Medicine; Referring Provider Family Medicine; Visit Provider Family Medicine
DX: R00.2 Palpitations (principal)
CPT/HCPCS: 93306

== ENCOUNTER → 2023-05-15 | Outpatient (CLI) | payer OTHER, SELFPAY ==
--- NOTE | 2023-05-15 11:56 | STRESSREP ---
Stress Test Report Exercise stress test. Stress protocol: Resting EKG demonstrates normal sinus rhythm with a rate of 78 bpm resting blood pressure is 110/80 mmHg. The patient exercised according to the regular Basil protocol for a total duration of 9 minutes attaining a maximum heart rate of 169 bpm which was 97% of maximum predicted heart rate; the maximum workload was 10.1 metabolic equivalents. At rest there were no ST or T wave changes noted to suggest ischemia and at peak exercise upsloping ST changes only were noted which did not meet the criteria for ischemia. No clinical angina was noted the test was terminated due to the target heart rate being achieved/fatigue. The peak blood pressure was 180/80 mmHg. Rate-pressure product was 29,800. No episodes of supraventricular tachycardia were noted and no chest pain was noted. Conclusion: Normal exercise stress test at a high metabolic workload with no angina or arrhythmias.
== END | disposition home or self-care (01) ==
LOC: CVS 10:38
PROVIDERS: PCP Family Medicine; Referring Provider Internal Medicine Cardiovascular Disease; Visit Provider Internal Medicine Cardiovascular Disease
DX: I47.9 Paroxysmal tachycardia, unspecified (principal)
CPT/HCPCS: 93017

== ENCOUNTER → 2023-08-11 | Outpatient (CLI) | payer OTHER, SELFPAY ==
[2023-08-11 10:12] LABS: AST(SGOT) 23 U/L (15-37); Alanine Aminotransfer ALT/SGPT 42 U/L (13-56); Albumin, Serum 3.9 g/dL (3.2-5.0); Alkaline Phosphatase 92 U/L (45-117); Bilirubin, Direct 0.12 mg/dL (0.00-0.30); Cholesterol 165 mg/dL (200); High Density Lipoprotein 62 mg/dL; Protein, Total 7.9 g/dL (6.4-8.2); Triglycerides 159 mg/dL; Very Low Density Lipoprotein 32 mg/dL (5-40)
== END | disposition home or self-care (01) ==
LOC: LAB 08:58
PROVIDERS: PCP Family Medicine; Referring Provider Nurse Practitioner Gerontology; Visit Provider Nurse Practitioner Gerontology
DX: E78.5 Hyperlipidemia, unspecified (principal)
CPT/HCPCS: 36415; 80061; 80076

== ENCOUNTER → 2024-01-16 | Outpatient (CLI) | payer OTHER, SELFPAY ==
--- NOTE | 2024-01-16 13:30 | RAD_ITS ---
STUDY: X-RAY - LEFT WRIST REASON FOR EXAM: Female, 48 years old. Pain. TECHNIQUE: 3 views of the left wrist were obtained. COMPARISON: None. FINDINGS: Normal visualized distal radius and ulna. Normal radiocarpal articulation. Normal distal radioulnar articulation. Normal carpal bones. Normal carpal articulations. Normal carpometacarpal articulation of the thumb. Normal second through fifth carpometacarpal articulations. Normal visualized metacarpal bones. The soft tissue structures are unremarkable. There is no demonstrated acute fracture. RAD/Wrist min 3 Views IMPRESSION: Normal x-ray examination of the left wrist. Electronically Signed: Esvin Turner MD at 12:28 EST ,
== END | disposition home or self-care (01) ==
LOC: MTRAD 13:29
PROVIDERS: PCP Family Medicine; Referring Provider Nurse Practitioner Family; Visit Provider Nurse Practitioner Family
DX: M25.532 Pain in left wrist (principal)
CPT/HCPCS: 73110

== ENCOUNTER → 2024-01-28 | Outpatient (CLI) | payer OTHER, SELFPAY ==
--- NOTE | 2024-01-28 11:16 | NEURO_ITS ---
NCS and/or EMG Patient Report Ordering Doctor: Mac Rodriguez DATE OF SERVICE: 01/28/24 Jacqueline presents with pain in the right thumb radiating to the elbow. She reports intermittent numbness in the hand. Electrodiagnostic findings: Right median motor nerve demonstrates normal distal latency, amplitude and conduction velocity. Right ulnar motor response is within normal limits. Normal median and ulnar F?waves. Sensory responses are normal. Needle EMG testing was performed the right upper limb. All muscles t ested showed no evidence of denervation with normal motor unit action potentials. Electrodiagnostic impression: This is a normal electrodiagnostic study of the right upper limb. There is no electrodiagnostic evidence for peripheral neuropathy, including carpal tunnel or cubital tunnel syndrome. There is no electrodiagnostic evidence for cervical radiculopathy. Multi Select Codes Neurology Neurology Interp Codes: 22690-21 Musc test done w/n test comp (interp) and 64874-71 Nrv cndj test 7-8 studies (interp)
== END | disposition home or self-care (01) ==
LOC: PSN 09:49
PROVIDERS: PCP Family Medicine; Referring Provider Family Medicine; Visit Provider Family Medicine
DX: G62.9 Polyneuropathy, unspecified (principal)
CPT/HCPCS: 95886; 95910

== ENCOUNTER → 2024-04-26 | Outpatient (CLI) | payer BC, SELFPAY ==
--- NOTE | 2024-04-26 09:39 | US_ITS ---
PROCEDURE: BREAST LIMITED UNILATERAL REASON FOR EXAM: LEFT BREAST MASS COMPARISON: Comparison is made with prior mammogram done earlier in the day. TECHNIQUE: Targeted ultrasound of the left breast was performed. FINDINGS: LEFT: Ultrasound targeted to the upper aspect of the left breast. The breast tissue appears sonographically normal. No cyst, solid mass, or suspicious shadowing. US/Breast Limited Unilateral IMPRESSION: No sonographic abnormality is seen. Routine annual mammographic follow-up perry mmended. BI-RADS 1: NEGATIVE. RECOMMEND ANNUAL MAMMOGRAPHIC SCREENING. Reading Location: [place] [address]
--- NOTE | 2024-04-26 09:39 | BI_ITS ---
PROCEDURE: DIAG MAMM W/CAD, BILAT REASON FOR EXAM: LEFT BREAST MASS No family history. TECHNIQUE: Bilateral diagnostic digital breast tomosynthesis with 2D and 3D images. Computer aided detection. COMPARISON: Prior exam(s) dating back to December 23, 2022.. FINDINGS: The breasts are extremely dense which lowers the sensitivity of mammography. No dominant mass lesion or cluster of microcalcification is seen. The overlying skin is not thickened. BI/DIAG MAMM W/CAD, BILAT IMPRESSION: With the patient's history of palpable lumps in the upper-outer quadrant of the left breast, targeted sonographic correlation recommended. BI-RADS 0: INCOMPLETE - NEED ADDITIONAL IMAGING EVALUATION. Follow-up code: Ultrasound Recommended Reading Location: [place] [address]
--- NOTE | 2024-04-26 14:17 | US_ITS ---
PROCEDURE: PELVIC W/ TRANSVAGINAL REASON FOR EXAM: DYSMENORRHEA, ENLARGED UTERUS COMPARISON: None. TECHNIQUE: Transvaginal pelvic ultrasound. Color and spectral doppler analysis of the ovaries. FINDINGS: Uterus measures 12.2 x 8.2 x 6.5 cm. Posterior fundal fibroid measuring 4 x 4.1 cm. Endometrium is 5.6 mm. Right ovary measures 3.5 x 2.2 x 1.6 cm. Left ovary measures 4.1 x 2.2 x 2.5 cm. There is a 3.2 x 2.4 cm left ovarian cyst No significant free fluid. US/Pelvic w/ Transvaginal IMPRESSION: Enlarged myomatous uterus. Endometrium not thickened. Left ovarian cyst measuring 3.2 by 2.4 cm. This is difficult to fully characte rize as bowel gas does limit sensitivity. Consider follow-up examination in 2-3 menstrual cycles. Reading Location: [id number]
== END | disposition home or self-care (01) ==
PROVIDERS: PCP Family Medicine; Referring Provider Nurse Practitioner Women's Health; Visit Provider Nurse Practitioner Women's Health
DX: N63.20 Unspecified lump in the left breast, unspecified quadrant (principal); R92.0 Mammographic microcalcification found on diagnostic imaging of breast; R10.2 Pelvic and perineal pain; N85.2 Hypertrophy of uterus
CPT/HCPCS: 76642; 76830; 76856; 77062; 77066; G0279

== ENCOUNTER → 2024-05-20 | Outpatient (CLI) | payer BC, SELFPAY ==
--- NOTE | 2024-05-20 14:57 | US_ITS ---
PROCEDURE: BREAST LIMITED UNILATERAL 05/20/2024 REASON FOR EXAM: LEFT BREAST MASS TECHNIQUE: Targeted left breast ultrasound of the retroareolar region of the left breast.. COMPARISON: Comparison is made with prior mammogram dated April 26, 2024. FINDINGS: Left breast ultrasound was targeted to the retroareolar region.. There are 3 subcentimeter cysts in the retroareolar region of the left breast. The largest cyst measures 7 mm x 7 mm x 5 mm. US/Breast Limited Unilateral IMPRESSION: Impression: 3 subcentimeter cysts in the retroareolar region of the left breast . Birads: BI-RADS 2: BENIGN. RECOMMEND ANNUAL MAMMOGRAPHIC SCREENING. Reading [facility]
== END | disposition home or self-care (01) ==
PROVIDERS: PCP Family Medicine; Referring Provider Surgery; Visit Provider Surgery
DX: N63.42 Unspecified lump in left breast, subareolar (principal)
CPT/HCPCS: 76642

== ENCOUNTER → 2024-06-03 | Outpatient (CLI) | payer BC, SELFPAY ==
--- NOTE | 2024-06-03 14:45 | US_ITS ---
PROCEDURE: THYROID 06/03/2024 REASON FOR EXAM: THYROMEGALY TECHNIQUE: High-frequency thyroid ultrasound, including grayscale and color-flow images. REFERENCE LINKS: TI-RADS Chart: [email or web address] TI-RADS Calculator Tool with Reference Images: [email or web address]/ COMPARISON: None FINDINGS: Right thyroid lobe size: 3.5 cm x 1.4 cm 1.5 cm cm Left thyroid lobe size: 3.5 cm x 1.4 cm 1 cm cm Isthmus: 1.7 mm cm Background parenchymal echotexture is homogeneous. Nodules: No nodules are seen. US/Thyroid IMPRESSION: Normal size of the thyroid gland. No abnormality is seen. RECOMMENDATION: Based on most suspicious nodule. Nodule size = largest diameter Only evaluate nodule if =>5 mm. Growth > 20% in 2 dimensions = worsening. Follow up to 4 nodules. Recommend biopsy for no more than 2 nodules. Reading Location: [place] [address]
== END | disposition home or self-care (01) ==
LOC: US 14:44
PROVIDERS: PCP Family Medicine; Referring Provider Obstetrics & Gynecology; Visit Provider Obstetrics & Gynecology
DX: E01.0 Iodine-deficiency related diffuse (endemic) goiter (principal)
CPT/HCPCS: 76536

== ENCOUNTER → 2024-06-18 | Outpatient (CLI) | payer BC, SELFPAY ==
[2024-06-18 15:54] LABS: Hematocrit 42.8 % (37-47); Mean Corp Hgb Conc 32.7 g/dL (32-36); Mean Corpuscular Hgb 30.8 pg (27.0-32.0); Mean Corpuscular Volume 94.1 fL (81-99); Platelet Count 231 K/mm3 (150-450); RBC Distribution Width CV 13.4 % (11.6-14.6); RBC Distribution Width SD 46.4 fl (35.1-43.9); Red Blood Count 4.55 M/mm3 (4.2-5.4); White Blood Count 9.6 K/mm3 (4.4-11.0)
[2024-06-18 16:48] LABS: Anion Gap 10 (5-15); BUN 15 mg/dL (4-19); BUN/Creat Ratio 22.3 RATIO (10-20); Carbon Dioxide 23.7 mmol/L (21.0-32.0); Chloride 104 mmol/L (98-108); Creatinine, Serum 0.68 mg/dL (0.70-1.20); EST Glomerular Filtration Rate 108 (>60); Glucose 91 mg/dL (70-99); Potassium 4.1 mmol/L (3.3-5.1); Sodium Level 137 mmol/L (133-145)
== END | disposition home or self-care (01) ==
LOC: MFPLAB 10:52
PROVIDERS: PCP Family Medicine
DX: Z12.11 Encounter for screening for malignant neoplasm of colon (principal)
CPT/HCPCS: 36415; 80048; 85027

== ENCOUNTER 2024-07-27 08:06 | Day surgery (SDC) | payer BC, SELFPAY ==
--- NOTE | 2024-07-13 18:04 | PAT.ANE_ITS ---
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 When Was Last Pacemaker Check QUESTION #4 FULL TEXT: You/Your Family Experience fever (hyperthermia) with Anesthesia Last Oral Intake Last Oral intake: Last Oral Intake NPO since Meds taken in AM with sips of water? Meds patient instructed to take am of surgery PONV PONV - judicial assistant: PONV - judicial assistant Female Yes 07/13/24 10:12 HX of Motion Sickness No 07/13/24 10:12 HX of N/V After Surgery Yes 07/13/24 10:12 Non-Smoker No 07/13/24 10:12 Duration of Surgery greater Yes 07/13/24 10:12 than 60 minutes Number of Risk Factors 3 07/13/24 10:12 PONV Score Moderate Risk 07/13/24 10:12 Height & Weight Height & Weight: Anesthesia: Height & Weight Height 5 ft 4 in 05/28/24 15:13 Respiratory Assessment Respiratory Assessment - judicial assistant: Respiratory Tract Infection Hx - judicial assistant Hx Respiratory Tract Infection No 07/13/24 10:12 STOP Sleep Apnea STOP Sleep Apnea - judicial assistant: STOP Sleep Apnea - judicial assistant Hx Hypertension No 07/13/24 10:12 Hx Sleep Apnea No 07/13/24 10:12 CPAP BIPAP Do you snore loudly (louder No 07/13/24 10:12 than talking or can be heard Do you often feel tired/ No 07/13/24 10:12 fatigued/ sleepy during daytime? Has anyone observed you stop No 07/13/24 10:12 breathing during sleep? STOP Results Negative 07/13/24 10:12 QUESTION #5 FULL TEXT : Do you snore loudly (louder than talking or can be heard through closed doors)? 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 Specify any problems Hx of Preganancy in last 3 No 07/13/24 10:12 Months Nurse Filling Out Transfusion [id number] 07/13/24 10:12 & Questions: Date: 07/13/24 07/13/24 10:12 Time: 10:14 07/13/24 10:12 Patient unable to answer at this time (ie. confused, unrespo /Reproduction History /Reproductive History - judicial assistant: /Reproductive Hx- judicial assistant Hx Now No 07/13/24 10:12 Gestational Age (in weeks): EDC: Hx Hx Para Hx Section SAB No 07/13/24 10:12 PFS Medical History (Updated 07/13/24 @ 10:20 by James Azul) MRSA infection Marijuana use History of steroid therapy Migraine headache History of Holter monitoring History of echocardiogram History of stress test Cardiology follow-up encounter Atrial tachycardia Hypercholesteremia Hyperlipidemia Bipolar 1 disorder Menorrhagia Kidney stone Heart palpitations Home Medications ?Medication ?Instructions ?Recorded ?Last Taken ?Type cholecalciferol (vitamin D3) 125 125 mcg PO DAILY 06/03 Unknown History mcg (5,000 unit) capsule magnesium 200 mg tablet 200 mg PO DAILY 04/14/23 Unk nown History mecobalamin (vitamin B12) 1,000 2,000 mcg PO DAILY Unknown History mcg chewable tablet epinephrine 1 mg/mL injection kit 1 mg IM Q20M PRN jose phylaxis 08/11/23 Unknown History (Epinephrine Professional) tizanidine 2 mg capsule 2 mg PO Q8H PRN muscle spast icity 02/13/24 Unknown History metoprolol succinate 25 mg 25 mg PO DAILY #90 tabs 10/04 Unknown Rx tablet,extended release 24 hr (Toprol XL) norethindrone (contraceptive) 0.35 0.35 mg PO QDAY #84 tabs 04/12/24 Unknown Rx mg tablet (Jencycla) venlafaxine 75 mg capsule,extended 75 mg PO DAILY #90 caps 04/12/24 Unknown Rx release 24 hr rosuvastatin 10 mg tablet (Crestor) 10 mg PO DAILY #90 tabs 07/06/24 Unknown Rx valacyclovir 500 mg tablet 500 mg PO QDAY #30 tabs Unknown Rx (Valtrex) Allergy/AdvReac Type Severity Reaction Status Date / Time bee venom protein (honey Allergy Severe Anaphylaxis Verified 07/13/24 10:07 bee) (bees) ibuprofen Allergy Intermediate EDEMA Verified 07/13/24 10:07 Latex, Natural Rubber Allergy Intermediate RASH Verified 07/13/24 10:07 Penicillins AdvReac Anaphylaxis Verified 07/13/24 10:07 Sulfa (Sulfonamide AdvReac Hives Verified 07/13/24 10:07 Antibiotics) sulfamethoxazole (From AdvReac Hives Verified 07/13/24 10:07 Bactrim) trimethoprim (From Bactrim) AdvReac Hives Verified 07/13/24 10:07 Family History Grandfather Cancer Skin cancer- Maternal Mother Heart disease Diabetes Myocardial infarction Endometriosis Grandmother Kidney disease Diabetes Heart disease Myocardial infarction Sister Cancer Surgical History (Updated 07/13/24 @ 10:20 by James Azul) delivery delivered S/P endometrial ablation S/P lumpectomy, left breast History of tubal ligation Social History household members: significant other number of children: 3 current occupational status: employed 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 Sinus rhythm. Poor R wave progression?nonspecific?consider old anterior infarct. Stress test pertinent findings: May 15, 2023. Normal exercise stress test at high metabolic workload with no angina or arrhythmias. Patient achieved 10.1 METS. Echo (EF%) pertinent findings: April 03, 2023. EF 60%. PASP is 30 mmHg. No aortic stenosis noted. Consult pertinent findings: February 13, 2024. Claudia GOLD 1. Atrial tachycardia?acute-last stress test in May 2023 was normal with a high metabolic workload. Patient did say her symptoms have improved since starting the metoprolol and stopping vaping. Patient is to continue metoprolol and monitor for any recurring symptoms. Additional pertinent findings: Holter monitor. February 26, 2023. Predominant rhythm is normal sinus rhythm. 4 episodes of atrial tachycardia. Longest is 6 beats. 1 episode of ventricular tachycardia. PAC burden 0.1%. PVC burden is 0.1%. Recommendation Anesthesia Recommendation Anesthesia recommendation: OPTIMIZED for anesthesia
--- NOTE | 2024-07-14 08:03 | EKG12_ITS ---
Test Reason : PRE OP Blood Pressure : */* mmHG Vent. Rate : 88 BPM Atrial Rate : 88 BPM P-R Int : 140 ms QRS Dur : 74 ms QT Int : 360 ms P-R-T Axes : 64 58 55 degrees QTcB Int : 435 ms Normal sinus rhythm Normal ECG Confirmed by Alvin Mueller ([id number]), editorial specialist LAQUITA OTT ([id number]) on 07/14/2024 1:43:37 PM Referred By: Katie Reed Confirmed By: Alvin Mueller
[2024-07-14 08:58] LABS: Absolute Lymphocyte Count 2.51 X10^3/uL (0.83-4.51); Absolute Neutrophil Count 6.4 X10^3/uL (2.0-7.7); Basophil# 0.04 X10^3/uL; Basophil% 0.4 % (0-1); Eosinophil# 0.21 X10^3/uL; Eosinophils% 2.1 % (0-5); Hematocrit 43.7 % (37-47); Lymphocyte # 2.51 X10^3/ul (0.83-4.51); Lymphocyte % 25.1 % (19-41); Mean Corp Hgb Conc 34.3 g/dL (32-36); Mean Corpuscular Hgb 31.5 pg (27.0-32.0); Mean Corpuscular Volume 91.8 fL (81-99); Mean Platelet Vol. 11.2 fl (6.2-12.0); Monocyte# 0.74 X10^3/uL; Monocyte% 7.4 % (0-10); NRBC Flagged by Analyzer 0 % (0-5); Neutrophil # 6.41 X10^3/uL (2.7-7.7); Platelet Count 209 K/mm3 (150-450); RBC Distribution Width CV 13.2 % (11.6-14.6); RBC Distribution Width SD 44.7 fl (35.1-43.9); Red Blood Count 4.76 M/mm3 (4.2-5.4)
[2024-07-14 10:04] LABS: Anion Gap 13 (5-15); BUN 15 mg/dL (4-19); BUN/Creat Ratio 19.9 RATIO (10-20); Calcium,Total 9.7 mg/dL (7.6-11.0); Carbon Dioxide 23.2 mmol/L (21.0-32.0); Chloride 100 mmol/L (98-108); Creatinine, Serum 0.73 mg/dL (0.70-1.20); EST Glomerular Filtration Rate 102 (>60); Glucose 103 mg/dL (70-99); Magnesium 1.8 mg/dL (1.5-2.2); Potassium 4.2 mmol/L (3.3-5.1); Sodium Level 136 mmol/L (133-145)
[2024-07-15 04:07] LABS: Thyroid Peroxidase AB < 9 IU/mL (0-34)
[2024-07-27] VITALS (14 sets, daily range): BP systolic 104–135; BP diastolic 50–111; PULSE 75–84; RESP 12–18; TEMP 36.2–37.1; O2SAT 93–99; BMI 31.8
--- NOTE | 2024-07-27 07:32 | PCM.HP.BLA ---
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 Required: No Is patient in pain?: No Feel stressed/tense/nervous/anxious/difficulty sleeping: not at all Allergies bee venom protein (honey bee) (bees) Allergy (Severe, Verified 07/08/24 09:03) Anaphylaxisibuprofen Allergy (Intermediate, Verified 07/08/24 09:03) EDEMALatex, Natural Rubber Allergy (Intermediate, Verified 07/08/24 09:03) RASHPenicillins Adverse Reaction (Verified 07/08/24 09:03) AnaphylaxisSulfa (Sulfonamide Antibiotics) Adverse Reaction (Verified 07/08/24 09:03) Hivessulfamethoxazole (From Bactrim) Adverse Reaction (Verified 07/08/24 09:03) Hivestrimethoprim (From Bactrim) Adverse Reaction (Verified 07/08/24 09:03) Hives Medications ?Medication ?Instructions ?Recorded ?Confirmed ?Type cholecalciferol (vitamin D3) 125 125 mcg PO DAILY 04/14/23 07/08/24 History mcg (5,000 unit) capsule magnesium 200 mg tablet 200 mg PO DAILY 04/14/23 07/08/24 History mecobalamin (vitamin B12) 1,000 2,000 mcg PO DAILY 05/07/23 07/08/24 History mcg chewable tablet epinephrine 1 mg/mL injection kit 1 mg IM Q20M PRN 08/11/23 07/08/24 History (Epinephrine Professional) tizanidine 2 mg capsule 2 mg PO Q8H PRN 02/13/24 07/08/24 History metoprolol succinate 25 mg 25 mg PO DAILY #90 tabs 02/18/24 07/08/24 Rx tablet,extended release 24 hr (Toprol XL) norethindrone (contraceptive) 0.35 0.35 mg PO QDAY #84 tabs 04/12/24 07/08/24 Rx mg tablet (Jencycla) venlafaxine 75 mg capsule,extended 75 mg PO DAILY #90 caps 04/12/24 07/08/24 Rx release 24 hr rosuvastatin 10 mg tablet (Crestor) 10 mg PO DAILY #90 tabs 07/06/24 07/08/24 Rx Is last menstrual period known: Yes Last Menstrual Period: 05/31/24 Post menopausal: No Patient : No : No PFSH Medical History (Updated 07/08/24 @ 09:[address] Katie Reed MD) Atrial tachycardia Hypercholesteremia Hyperlipidemia Bipolar 1 disorder Menorrhagia Kidney stone Heart palpitations Surgical History (Updated 07/08/24 @ 09:[address] Katie Reed MD) delivery delivered S/P endometrial ablation S/P lumpectomy, left breast History of tubal ligation Family History Grandfather Cancer Skin cancer- MaternalMother Heart disease Diabetes Myocardial infarction EndometriosisGrandmother Kidney disease Diabetes Heart disease Myocardial infarctionSister Cancer Social History household members: significant other number of children: 3 current occupational status: employed current occupation: [employer] Smoking Status: Current every day smoker tobacco type: cigarettes alcohol intake: current alcohol intake frequency: a few times a week substance use type: marijuana seatbelt use: always do you feel safe at home: Yes additional social history: Toney [employer] BS Details: STEPHANIE BELL is a 49 year old who presents for pelvic pain and irregular bleeding- last bled in march, also has a uterine fibroid. she has had an ablation in the past and pelvic ultrasound shows 4 cm fibroid. she has constant lower pelvic pain and then intermittent sharp pains that come and go, has been increasing over the last few years. she has been on a progesterone only ocp. preop visit Female Reproductive History Last Menstrual Period: 05/31/24 Menopausal Symptoms: No night sweats History 4 Elective abortions Hx Para 3 Spontaneous abortions Hx # Term Pregnancies Ectopic pregnancies Hx # Pregnancies Multiple births # of living children 3 Past Pregnancies Del. Date Name GA/Weeks Outcome Route Bth Weight Infant Gen Labor Lgth Anesthesia Del Locatn Provider FOB Unknown Tabby 1998 Unknown Meli 2000 Unknown Kyra 2006 ROS Const Constitutional: Denies fatigue, night sweats, weight gain or weight loss Eyes Eyes: Reports system reviewed and no additional complaints, except as documented ENT ENT: Reports system reviewed and no additional complaints, except as documented Cardio Card: Denies chest pain Resp Resp: Denies cough or dyspnea GI GI: Reports as per HPI and abdominal pain; Denies constipation, nausea or vomiting : Denies nipple discharge, urinary frequency, urinary incontinence, urinary hesitancy, urinary urgency, vaginal discharge, vaginal dryness, vaginal odor or vaginal pruritus Musc Musc: Denies arthralgias, back pain or muscle weakness Skin Skin/Breast: Denies alopecia, change in hair, dry skin, breast mass, breast pain, breast skin changes or nipple discharge Neuro Neuro: Reports system reviewed and no additional complaints, except as documented Psych Psych: Reports system reviewed and no additional complaints, except as documented Endo Endo: Denies cold intolerance, excessive sweating, heat intolerance or polydipsia Bola/Lymph Hematologic/Lymphatic: Denies easy bleeding, Denies easy bruising and Denies lymphadenopathy Exam Const General: cooperative and no acute distress Orientation: oriented x3 HENMT Head: normal to inspection and normocephalic Ears: hearing grossly normal bilaterally and external ears normal Nose: external nose normal and nares normal Face and sinus: normal facial exam Eyes General: appearance normal, both eyes and all related structures Neck Neck: normal visual inspection Thyroid: thyroid normal Chest Chest palpation & inspection: normal inspection of the chest Resp Effort & Inspection: normal respiratory effort Auscultation: clear to auscultation bilaterally Cardio Rate: regular rate Rhythm: regular rhythm Heart Sounds: S1 normal and S2 normal GI Inspection: normal to inspection and non-distended Palpation: soft and no hepatosplenomegaly General: bladder normal to palpation External Female Exam: normal external appearance and normal appearance of the urethra Urethra: normal appearance of the urethra, normal palpation and no discharge Speculum Exam - Vagina: normal appearance of the vagina and normal vaginal discharge Speculum Exam - Cervix: normal appearance of the cervix and nontender Bimanual Exam- Vagina & Uterus: No normal bimanual exam, abnormal uterine size, bladder normal to palpation, uterine shape normal, No tender, uterine mobility normal, consistency normal, normal palpation, non-tender and enlarged Bimanual Exam- Adnexa, other: normal adnexae, adnexae mobile, no masses and normal Pelvic Support: normal Musc Other: gross motor intact no deficits, full bilateral strength Skin General: no rashes or lesions noted Neuro General: patient alert, patient awake, moves all extremities and no focal motor deficits Cognition: normal cognition Speech: speech normal Motor: muscle tone normal throughout Extrem General: normal to inspection and no pedal edema Psych Appearance: grossly normal Mental Status: mental status grossly normal Mood: congruent mood Affect: normal affect Speech and Movement: speech and movement normal Attitude: cooperative Judgment: judgment good Coding Level of Care Code No Charge Diagnoses Pelvic pain R10.2 Menorrhagia with regular cycle N92.0 Uterine fibroid D25.9 Atrial tachycardia I47.19 Enlarged uterus N85.2 Climacteric N95.1 Assessment and Plan Assessment and Plan (1) Pelvic pain: Status: Acute Comment: 4 cm fibroid recommend LAVHBS (2) Menorrhagia with regular cycle: Status: Acute Comment: dionicio- failed, previous ablation, plan LAVHBS (3) Uterine fibroid: Status: Acute Comment: 4cm. plan LAVHBS now. (4) Atrial tachycardia: Status: Acute Comment: post covid. on metorprolol. ekg ordered preop (5) Enlarged uterus: Status: Acute (6) Climacteric: Status: Acute Comment: effexor Plan After discussing the patient's diagnosis and treatment plan options, patient wishes to proceed with surgical management. I have discussed with the patient the risks, benefits, and alternatives of the procedure which include but are not limited to risks of anesthesia, bleeding, infection, possible damage to bowel, bladder, or surrounding vasculature which could lead to additional surgery to evaluate any complications. Patient agrees to procedure and wishes to proceed. ACOG/uptodate references given for additional information regarding procedure.
[2024-07-27] MEDS: Magnesium 2 GM for ERAS IV (09:05)
[2024-07-27] MEDS: Lactated Ringers 1,000 ML 40 ML IV (09:05)
[2024-07-27] MEDS: Scopolamine 1mg/72hr Patch 1 PATCH TD (09:06)
[2024-07-27] MEDS: Enoxaparin 40 MG/0.4 ML Syringe SC (09:07)
[2024-07-27] MEDS: Phenazopyridine 95 MG Tablet 190 MG PO (09:10)
[2024-07-27] MEDS: Acetaminophen 500 MG Tablet 1000 MG PO ×2 (09:10→17:00)
[2024-07-27] MEDS: Gabapentin 600 MG Tablet PO (09:11)
[2024-07-27] MEDS: Gentamicin IV 330 MG in Dextrose 5%-Water (50mL Bag) 50 ML 100 MG IVPB (09:16)
[2024-07-27 09:32] LABS: Bedside Glucose 74 mg/dL (74-106)
--- NOTE | 2024-07-27 09:42 | PCM.PRE.AN2 ---
ASA Classification* ASA Classification ASA Classification: 2 (atrial tachycardia, ) Assessment & Plan Anesthesia* Anesthesia Assessment Anesthesia Assessment: Discussed sedation and/or anesthesia options, risks, benefits, and alternatives with patient/parents/legal guardian/POA. Questions invited. The patient/parents/legal guardian/POA seems to understand and agrees to proceed with anesthesia plan. Reviewed the physical assessment, medical history, allergy history and patient home medications list prior to surgery/procedure/anesthetic and documented any changes. Performed airway and anesthesia risk assessments. Anesthesia Type Anesthesia Type: General History Source History Obtained from:: Patient and Chart Anesthesia Focused Assessment* Temperature: 97.3 F Pulse Rate: 75 Blood Pressure: 123/92 Respiratory Rate: 16 Pulse Ox: 98 Oxygen Delivery Method: Room Air Airway Assessment Mouth opens: >3 cm Mallampati Score: II Teeth Condition: Intact Neck Range of motion (ROM): Full ROM Labs Anesthesia Preop lab: CBC WBC 10.0 K/mm3 (4.4-11.0) 07/14/24 08:12 07/14/24 RBC 4.76 M/mm3 (4.2-5.4) 07/14/24 08:12 07/14/24 Hgb 15.0 g/dL (12.0-15.0) 07/14/24 08:12 07/14/24 Hct 43.7 % (37-47) 07/14/24 08:12 07/14/24 Plt Count 209 K/mm3 (150-450) 07/14/24 08:12 07/14/24 CHEMISTRY Potassium 4.2 mmol/L (3.3-5.1) 07/14/24 08:12 07/14/24 Sodium 136 mmol/L (133-145) 07/14/24 08:12 07/14/24 Magnesium 1.8 mg/dL (1.5-2.2) 07/14/24 08:12 07/14/24 BUN 15 mg/dL (4-19) 07/14/24 08:12 07/14/24 Creatinine 0.73 mg/dL (0.70-1.20) 07/14/24 08:12 07/14/24 Glucose 103 mg/dL (70-99) H 07/14/24 08:12 07/14/24 POC Glucose 74 mg/dL (74-106) 07/27/24 08:48 07/27/24 TSH 1.250 uIU/mL (0.300-4.200) 07/14/24 08:12 07/14/24 COAG Pre-Assessment Diagnosis/Proposed Procedure Planned Operative Procedure(s): HYSTERECTOMY, LAPAROSCOPIC ASSISTED VAGINAL, ISSA SALPINGECTOMY Anesthesia History Anesthesia History - gum sprayer: Anesthesia History - gum sprayer Hx Hospitalization No 07/13/24 10:12 Any Problems With Anesthesia No 07/13/24 10:12 Cholinesterase deficiency No 07/13/24 10:12 You/Your Family Experience No 07/13/24 10:12 fever (hyperthermia) with Relationship Recent Exposure to Contagious No 07/27/24 09:19 Disease Does patient have nerve No 07/13/24 10:12 stimulator Patient instructed to have device shut off --Does patient have Pacemaker No 07/27/24 09:19 or ICD? When Was Last Pacemaker Check QUESTION #4 FULL TEXT: You/Your Family Experience fever (hyperthermia) with Anesthesia Last Oral Intake Last Oral intake: Last Oral Intake NPO since 06:00 07/27/24 09:19 Meds taken in AM with sips of Yes 07/27/24 09:19 water? Meds patient instructed to effexor, metoprolol 07/27/24 09:19 take am of surgery PONV PONV - gum sprayer: PONV - gum sprayer Female Yes 07/13/24 10:12 HX of Motion Sickness No 07/13/24 10:12 HX of N/V After Surgery Yes 07/13/24 10:12 Non-Smoker No 07/13/24 10:12 Duration of Surgery greater Yes 07/13/24 10:12 than 60 minutes Number of Risk Factors 3 07/13/24 10:12 PONV Score Moderate Risk 07/13/24 10:12 Height & Weight Height & Weight: Anesthesia: Height & Weight Height 5 ft 4 in 07/27/24 09:19 Weight: 84 kg 07/27/24 09:19 Body Mass Index (BMI) 31.8 07/27/24 09:19 Respiratory Assessment Respiratory Assessment - gum sprayer: Respiratory Tract Infection Hx - gum sprayer Hx Respiratory Tract Infection No 07/13/24 10:12 STOP Sleep Apnea STOP Sleep Apnea - gum sprayer: STOP Sleep Apnea - gum sprayer Hx Hypertension No 07/13/24 10:12 Hx Sleep Apnea No 07/13/24 10:12 CPAP BIPAP Do you snore loudly (louder No 07/13/24 10:12 than talking or can be heard Do you often feel tired/ No 07/13/24 10:12 fatigued/ sleepy during daytime? Has anyone observed you stop No 07/13/24 10:12 breathing during sleep? STOP Results Negative 07/13/24 10:12 QUESTION #5 FULL TEXT : Do you snore loudly (louder than talking or can be heard through closed doors)? Tobacco Use History Tobacco Use History - gum sprayer: Tobacco Use History - gum sprayer Tobacco Use Smoking Status Current every day smoker 07/13/24 10:12 Hx Tobacco Use Yes 07/13/24 10:12 Years Smoking Packs Smoked per Day Smoking Cessation Date was within the last 15 years Hx Smoking Cessation Date 11/19/20 07/13/24 10:12 Hx Smoking Cessation Counseling Hematologic Medial History Hematologic Hx - gum sprayer: Hematologic Medical Hx - returned goods sorter Hx of Blood Transfusion Yes 07/13/24 10:12 Hx of Transfusion in last 3 No 07/13/24 10:12 Months Date of Last Transfusion (if within last 3 months) Ever experience any problems No 07/13/24 10:12 with transfusion(s)? Specify any problems Hx of Preganancy in last 3 No 07/13/24 10:12 Months Nurse Filling Out Transfusion [email or web address] 07/13/24 10:12 & Questions: Date: 07/13/24 07/13/24 10:12 Time: 10:14 07/13/24 10:12 Patient unable to answer at this time (ie. confused, unrespo /Reproduction History /Reproductive History - gum sprayer: /Reproductive Hx- gum sprayer Hx Now No 07/13/24 10:12 Gestational Age (in weeks): EDC: Hx Hx Para Hx Section SAB No 07/13/24 10:12 Active Medications Active Medications: Current Medications Generic Name Dose Route Start Last Admin Trade Name Freq PRN Reason Stop Dose Admin Acetaminophen 1,000 mg 07/27/24 10:25 07/27/24 09:10 Acetaminophen 500 Mg Tablet PO 07/27/24 10:26 1,000 mg PREOP ONE Administration Dexamethasone Sodium Phosphate 8 mg 07/27/24 10:25 Dexamethasone 4 Mg/Ml Vial IV 07/27/24 10:26 INTRAOP ONE Enoxaparin Sodium 40 mg 07/27/24 10:07/27/24 09:07 Enoxaparin 40 Mg/0.4 Ml Syringe SC 07/27/24 10:26 40 mg PREOP ONE Administration Gabapentin 600 mg 07/27/24 10:07/27/24 09:11 Gabapentin 600 Mg Tablet PO 07/27/24 10:26 600 mg PREOP ONE Administration Lactated Ringer's 1,000 mls @ 40 mls/hr 07/27/24 10:07/27/24 09:05 IV 40 mls/hr .Q25H ARLENE Administration Clindamycin Phosphate 900 mg in 50 mls @ 75 mls/hr 07/27/24 10:25 Cleocin IV 07/27/24 11:04 INTRAOP ONE Magnesium Sulfate 2 gm/ 104 mls @ 208 mls/hr 07/27/24 10:25 07/27/24 09:05 Dextrose IV 07/27/24 10:54 208 mls/hr INTRAOP ONE Administration Gentamicin Sulfate 330 mg/ 58.25 mls @ 100 mls/hr 07/27/24 10:25 07/27/24 09:16 Dextrose IVPB 07/27/24 10:59 100 mls/hr X1 ONE Administration Insulin Human Lispro 0 unit 07/27/24 10:25 Insulin Lispro 100 Unit/Ml Insuln.Pen SC 07/27/24 18:00 Q4H PRN PRN BG >/= 180, SEE PROTOCOL Protocol Ondansetron HCl 4 mg 07/27/24 10:25 Ondansetron 4 Mg/2 Ml Vial IV 07/27/24 10:26 INTRAOP ONE Phenazopyridine HCl 190 mg 07/27/24 10:07/27/24 09:10 Phenazopyridine 95 Mg Tablet PO 07/27/24 10:26 190 mg PREOP ONE Administration Scopolamine HBr 1 patch 07/27/24 10:07/27/24 09:06 Scopolamine 1mg/72hr Patch TD 07/27/24 10:26 1 patch PREOP ONE Administration PFS Medical History (Updated 07/13/24 @ 10:20 by James Azul) MRSA infection Marijuana use History of steroid therapy Migraine headache History of Holter monitoring History of echocardiogram History of stress test Cardiology follow-up encounter Atrial tachycardia Hypercholesteremia Hyperlipidemia Bipolar 1 disorder Menorrhagia Kidney stone Heart palpitations Home Medications ?Medication ?Instructions ?Recorded ?Last Taken ?Type cholecalciferol (vitamin D3) 125 125 mcg PO DAILY 04/14/23 Unknown History mcg (5,000 unit) capsule magnesium 200 mg tablet 200 mg PO DAILY 04/14/23 Unknown History mecobalamin (vitamin B12) 1,000 2,000 mcg PO DAILY 05/07/23 Unknown History mcg chewable tablet epinephrine 1 mg/mL injection kit 1 mg IM Q20M PRN anaphylaxis 08/11/23 Unknown History (Epinephrine Professional) tizanidine 2 mg capsule 2 mg PO Q8H PRN muscle spasticity 02/13/24 Unknown History metoprolol succinate 25 mg 25 mg PO DAILY #90 tabs 02/18/24 07/27/24 Rx tablet,extended release 24 hr (Toprol XL) norethindrone (contraceptive) 0.35 0.35 mg PO QDAY #84 tabs 04/12/24 Unknown Rx mg tablet (Jencycla) venlafaxine 75 mg capsule,extended 75 mg PO DAILY #90 caps 04/12/24 07/27/24 Rx release 24 hr rosuvastatin 10 mg tablet (Crestor) 10 mg PO DAILY #90 tabs 07/06/24 Unknown Rx valacyclovir 500 mg tablet 500 mg PO QDAY #30 tabs 07/08/24 Unknown Rx (Valtrex) Allergy/AdvReac Type Severity Reaction Status Date / Time bee venom protein (honey Allergy Severe Anaphylaxis Verified 07/27/24 09:04 bee) (bees) ibuprofen Allergy Intermediate EDEMA Verified 07/27/24 09:04 Latex, Natural Rubber Allergy Intermediate RASH Verified 07/27/24 09:04 Penicillins AdvReac Anaphylaxis Verified 07/27/24 09:04 Sulfa (Sulfonamide AdvReac Hives Verified 07/27/24 09:04 Antibiotics) sulfamethoxazole (From AdvReac Hives Verified 07/27/24 09:04 Bactrim) trimethoprim (From Bactrim) AdvReac Hives Verified 07/27/24 09:04 Family History Grandfather Cancer Skin cancer- Maternal Mother Heart disease Diabetes Myocardial infarction Endometriosis Grandmother Kidney disease Diabetes Heart disease Myocardial infarction Sister Cancer Surgical History (Updated 07/13/24 @ 10:20 by James Azul) delivery delivered S/P endometrial ablation S/P lumpectomy, left breast History of tubal ligation Social History household members: significant other number of children: 3 current occupational status: employed 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 Physical Exam Const alert and oriented x3 Nutritional Appearance: obese Resp normal respiratory effort, normal air movement and clear to auscultation bilaterally Cardio regular rate, regular rhythm, no murmurs and diaphoretic
--- NOTE | 2024-07-27 10:25 | UT_PTH ---
PATIENT: STEPHANIE BELL LOC: [facility] [place] U#:[id number] AGE/SX: 49/F ROOM: RE07/27/[address]: Dr. Katie Reed MD : [id number] BED: DIS: 07/27/2024 SPEC #: [id number] RECD: 07/27/24 16:35 STATUS: SHREYA RELorna #: [id number] ELSA: 07/27/24 10:[address]: Katie Reed DEPT: SURGICAL PATHOLOGY RECD BY: Cholo Gtz ENTERED: 07/28/24 09:51 SP TYPE: UTERUS OTHR DR: Odilon Almanza MD Tissues: A - Uterus, NOS Procedures: Immunohistochemical Stains Surgery Specimen Level V IHC Stain ADDITIONAL HEADER OPERATION: ERAS, laparoscopic assisted vaginal hysteroscopy, bilateral PRE-OP DIAGNOSIS: Pelvic pain, menorrhagia with regular cycle, uterine fibroid, enlarged uterus, Climacteric TISSUE SUBMITTED: A- Uterus, cervix, bilateral fallopian tubes MICROSCOPIC DIAGNOSIS A. Uterus, cervix, bilateral fallopian tubes, hysterectomy: * Cervix: squamous metaplasia. * Endometrium: inactive. * Myometrium: leiomyomata (up to 3.7 cm). 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 COMMENT Selected slides/images were reviewed in intradepartmental consultation by Dr J Carlos Samson (TAR DISTILLATION SUPERVISOR pathology division, [facility]). MICROSCOPIC DESCRIPTION Slides are reviewed. GROSS DESCRIPTION A. Received in formalin labeled with the patient's name and date of .? Designated as uterus, cervix, bilateral fallopian tubes is a 305 g, markedly disrupted uterus in numerous pieces collectively measuring 12.5 x 9.7 x 6.8 cm in aggregate. The serosa is yang and somewhat granular with focal adhesions, translucent cysts (0.2 cm), and a 0.7 cm subserosal leiomyoma.? The attached and detached fragments of yang cervix collectively measure 4.4 x 4.3 cm with an approximately 2.2 cm os.? There are no definitive anatomic landmarks to orient the specimen so the intact, cauterized external surfaces are inked black. Opening reveals a 5.1 x 2.7 cm irregular and distorted endometrial canal lined by thin red endometrium up to 0.3 cm thick. The myometrium is yang-pink with multiple intramural leiomyomas (0.6 cm to 3.7 cm), measuring up to approximately 3.9 cm thick (limited by the fragmented nature of the specimen). The detached dark red-purple fallopian tubes are fimbriated and devoid of orientation, measuring 2.3 x 0.5 cm and 5.3 x 0.4 cm. Cloth Shrinking Machine Operator sections are submitted as follows: A1-A2: CervixA3-A4: EndomyometriumA5-A6: Fallopian tubesA7: Subserosal leiomyomaA8: Largest intramural leiomyoma UT 07/28/2024 CPT:[id number] ADDENDUM ADDENDUM ADDENDUM ADDENDUM ADDENDUM ADDENDUM ADDENDUM ADDENDUM ADDENDUM ADDENDUM ADDENDUM ADDENDUM ADDENDUM ADDENDUM ADDENDUM ADDENDUM 08/12/2024 14:51 ADDENDUM 08/12/2024 14:51 ADDENDUM 08/12/2024 14:51 ADDENDUM 08/12/2024 14:51 ADDENDUM 08/12/2024 14:51 This case was also reviewed by a second TAR DISTILLATION SUPERVISOR pathologist at [facility], Dr Laurent Arora. IHC was performed at [facility]. The areas in question are Inhibin and Melan A positive, and PAX8 negative, consistent with the histologic impression of adrenocortical rests (remnant). All controls show appropriate reactivity. All immunohistochemistry, in situ hybridization, and histochemical tests were developed by and are performed at the [facility], [address] [place] [address], [place] [address]. All Immunofluorescent (IF)?tests were developed by and are performed at the [facility], [address] [place] [address], [place], [place] ?[address]. All tests reported here, except those addressing HER2 overexpression as a predictive marker, have not been cleared by or approved by the US Food and Drug Administration (FDA). The laboratory is regulated under CLIA as qualified to perform high-complexity testing. The tests are used for clinical purposes. They should not be regarded as investigational or for research.
--- NOTE | 2024-07-27 11:43 | OP.PCM_ITS ---
Problems Associated Problem List Diagnoses (1) Uterine fibroid: (2) Enlarged uterus: (3) Menorrhagia with regular cycle: (4) Pelvic pain: Procedures Urinary/Genital 52xxx-59xxx: 60241 LAVH+BS/O <250gr Uterus Operative Report (Standard) Operative Information Date of Procedure: 07/27/24 Pre-Operative Diagnosis: see problem list Post-Operative Diagnosis: same Surgery/Procedure Performed: laparoscopic assisted vaginal hysterectomy bilateral salpingectomy cystoscopy tar pot worker: Yes Electric Motor Winders Assembler: Sal Hernández Tasks completed by apartment community assistant manager: Opening & closing, Trocar and Retracting Additional grooming assistant?: No Type of Anesthesia: General RN Documented Start/Stop Times: Operation Date: 07/27/24 10:25 Case Time Into Pre-Op 07/27/24 08:30 Out of Pre-Op 07/27/24 11:42 Anesthesia Start 07/27/24 11:45 Into Room 07/27/24 11:45 Procedure Start 07/27/24 12:15 Procedure Start Time: 11:45 Procedure Stop Time: 14:18 Select all DRAINS/GRAFTS/IMPLANTS that apply: Drains (may) Drain details: may placed for procedure and removed at end of procedure Estimated Blood Loss: 400 Fluids Replaced: crystalloid Specimen collected: Yes Description of specimen(s) removed: uterus and tubes Description of surgery: Patient received preoperative antibiotics and SCDs were on preoperatively. Patient was taken back to the operating room and placed in the dorsal lithotomy position. General anesthesia was induced and patient was prepped and draped in normal sterile fashion. Uterine manipulator was placed inside the uterus and May catheter placed in the bladder. The umbilicus was grasped with towel clamps and an intraumbilical incision was made after injecting with quarter percent Marcaine and a Veress needle entered into the abdomen confirmed to be intra-abdominal with a low opening pressure. Abdomen was insufflated with CO2 gas and the Veress needle removed and the 5 mm trocar was placed under direct visualization without complication. Right and left lower quadrants were transilluminated and injected with quarter percent Marcaine and 5 mm ports placed under direct visualization. Pelvis was well visualized see operative findings for additional information. Bilateral fallopian tubes were identified and transected with the LigaSure device across the mesosalpinx to the level of the utero-ovarian ligament which was also transected with the LigaSure device. The broad ligament was opened up by transecting the round ligament bilaterally and skeletonizing the uterine vessels bilaterally, and creating a bladder flap using the LigaSure device. The uterine arteries were transected bilaterally with good visualization of the bladder and the ureters were seen to be inferior lateral to the operative area. this was very technically difficult due to uterine size and limited mobility and required additional operative time and manipulation. Attention was then paid to the vaginal portion of the procedure and the cervix was grasped with Elly clamps and circumferentially injected with dilute vasopressin. A circumferential incision was made and the vaginal mucosa was mobilized off posteriorly and the cul-de-sac entered into sharply and a longneck speculum placed. The anterior cul-de-sac was then identified and entered into sharply. The uterosacral ligaments were clamped cut and suture ligated with 0 Monocryl bilaterally followed by the cardinal ligaments which were clamped cut and suture ligated bilaterally with 0 Monocryl. The uterus serially descended and was removed without difficulty with morcellation required to removed the uterus but intra abdominal spillage done. Pelvic sidewall pedicles were checked and noted to have excellent hemostasis. The vaginal mucosa was reapproximated incorporating the posterior peritoneum. This was reapproximated using 0 Vicryl [id number] sutures. Excellent hemostasis was noted. The cystoscopy was then performed and bilateral ureteral strong spray was noted and the bladder was noted to have no abnormality or lesions seen. Attention paid to the abdominal portion of the procedure again. The pelvis and cul-de-sac was well visualized and no significant active bleeding noted but some raw areas were seen on the peritoneum and therefore surgiflow was applied. Pressure was taken down and the areas visualized and noted of excellent hemostasis. All ports were removed under direct visualization without complication and the abdomen was desufflated of air. The instruments removed from the abdomen and the vagina vaginal sweep was negative. Port sites on the abdomen were closed with 4-0 Monocryl interrupted sutures and Steri's and windows were applied. She was awoken and taken recovery in stable condition. Surgical Findings: enlarged uterus 324 g fibroids Complications Complications: No
[2024-07-27] MEDS: Clindamycin 900 MG/50 ML BAG 75 MG IV (11:45)
[2024-07-27] MEDS: dexAMETHasone 4 MG/ML Vial 8 MG IV (12:00)
--- NOTE | 2024-07-27 12:06 | PCM.DC ---
Discharge Instructions Diet Discharge Diet: No restrictions DC O2, CPAP, BIPAP needs Home O2 Discharge instructions: No Dressing / Incision May resume sexual activity in: 6 weeks Weight Bearing Status: Full weight bearing Dressing / Incision Call your doctor if your incision/area has: Continuous Slow Oozing, Sudden Increased Bleeding, Increased Pain/ Swelling, Increased Redness and Foul Smelling Discharge Call your doctor if you observe: Fever of 101 or Higher, Using more than 1 pad per hour, Shortness of breath, Chest pain and Uncontrolled pain Suture Line Care: Avoid Pulling/Pushing and Avoid Pinching/Bending Remove Dressing in: 1 week (if present) Cleanse incision/area with: Soap & Water and Keep Dressing Clean & Dry Follow Up Care Please Follow Up With: Katie Reed MD When: Call to make an appointment with your doctor for a postop visit in 2 and 6 weeks. Test Results: Test results from this visit will be discussed in further detail at your follow-up appointment, if applicable. Discharge Plan Admission Attending Provider: Katie Reed Primary Care Provider: Odilon Almanza Instructions Print Language: [place] Citizen Discharge Orders/Prescriptions Prescriptions: New oxycodone-acetaminophen [Percocet] 5-325 mg tablet 1 tab PO Q4H PRN (Reason: pain) 7 Days Qty: 20 0RF No Action magnesium 200 mg tablet 200 mg PO DAILY cholecalciferol (vitamin D3) 125 mcg (5,000 unit) capsule 125 mcg PO DAILY mecobalamin (vitamin B12) 1,000 mcg tablet,chewable 2,000 mcg PO DAILY Epinephrine Professional 1 mg/mL kit 1 mg IM Q20M PRN (Reason: anaphylaxis) Rx Instructions: for 2 doses tizanidine 2 mg capsule 2 mg PO Q8H PRN (Reason: muscle spasticity) norethindrone (contraceptive) [Jencycla] 0.35 mg tablet 0.35 mg PO QDAY Qty: 84 3RF venlafaxine 75 mg capsule,extended release 24hr 75 mg PO DAILY Qty: 90 3RF valacyclovir [Valtrex] 500 mg tablet 500 mg PO QDAY Qty: 30 12RF metoprolol succinate [Toprol XL] 25 mg tablet extended release 24 hr 25 mg PO DAILY Qty: 90 3RF rosuvastatin [Crestor] 10 mg tablet 10 mg PO DAILY Qty: 90 3RF Other Ambulatory Orders: 12 Lead EKG (Routine) Timeframe: 20240714 Location: None Selected Ordered By: Dr. Katie Reed Referrals / Follow Up: Mac Rodriguez MD [Med Staff - Active Staff] - Disposition Disposition (needs filled in before D/C Order can be placed): Home, Self Care
[2024-07-27] MEDS: Vasopressin 20 UNITS/ML Vial (13:06)
[2024-07-27] MEDS: Bupivacaine 0.25% 30 ML Vial (14:00)
--- NOTE | 2024-07-27 14:37 | PCM.POST.ANE ---
Anesthesia: Postop Eval I Current Vital Signs Temperature: 98.7 F Pulse Rate: 84 Blood Pressure: 130/76 Respiratory Rate: 18 Pulse Ox: 97 Oxygen Delivery Method: Nasal Cannula (3L per ERAS protocol) Assessment Airway patent: Yes Spontaneous unlabored respirations: Yes Mental status: Awake and Calm nausea: No Vomiting: No Anesthesia Complication: No Fluid Hydration Crystalloid volume administer (ml): 1,400 Total IV fluid infused: 1,400 Progress Note Anesthesia document: Postop Eval 1 completed: Yes
[2024-07-27] MEDS: oxyCODONE 5 MG Tablet PO (16:59)
[2024-07-27 17:21] LABS: Absolute Lymphocyte Count 0.92 X10^3/uL (0.83-4.51); Absolute Neutrophil Count 14.6 X10^3/uL (2.0-7.7); Basophil# 0.04 X10^3/uL; Basophil% 0.2 % (0-1); Eosinophil# 0.01 X10^3/uL; Eosinophils% 0.1 % (0-5); Hemoglobin 13.3 g/dL (12.0-15.0); Lymphocyte # 0.92 X10^3/ul (0.83-4.51); Lymphocyte % 5.7 % (19-41); Mean Corp Hgb Conc 34.1 g/dL (32-36); Mean Corpuscular Volume 90.9 fL (81-99); Mean Platelet Vol. 10.9 fl (6.2-12.0); Monocyte# 0.58 X10^3/uL; Monocyte% 3.6 % (0-10); NRBC Flagged by Analyzer 0 % (0-5); Neutrophil # 14.55 X10^3/uL (2.7-7.7); Neutrophil % 89.8 % (47-70); Platelet Count 177 K/mm3 (150-450); RBC Distribution Width CV 13.3 % (11.6-14.6); RBC Distribution Width SD 44.2 fl (35.1-43.9); Red Blood Count 4.29 M/mm3 (4.2-5.4); White Blood Count 16.2 K/mm3 (4.4-11.0)
--- NOTE | 2024-07-27 18:41 | POSTOPAN2_ITS ---
Anesthesia Postop Eval I Sum Postop Eval Completion status Anesthesia document: Postop Eval 1 completed: Yes Anesthesia Postop Eval I Summary Anesthesia Postop Eval I Summary: Anesthesia Postop Eval I: Assessment Summary Airway patent Yes 07/27/24 14:37 [email or web address] Spontaneous unlabored Yes 07/27/24 14:37 PATTERN [email or web address] respirations Mental status Awake,Calm 07/27/24 14:37 PATTERN [email or web address] nausea No 07/27/24 14:37 PATTERN [email or web address].GDOTT Vomiting No 07/27/24 14:37 PATTERN [email or web address].GDOTT Anesthesia Postop Eval I: Fluid Summary Crystalloid volume administer 1,400 07/27/24 14:37 PATTERN [email or web address].GDOTT (ml) Colloids volume administered ( ml) Blood Product volume administered (ml) Total IV fluid infused 1,400 07/27/24 14:37 PATTERN [email or web address].GDOTT Anesthesia Postop Eval I: Summary Notes Anesthesia Complication No 07/27/24 14:37 PATTERN [email or web address].GDOTT Anesthesia Complication Comment: Post-operative progress note Anesthesia: Postop Eval II Evaluation Mental status: Awake Pain Level: 0 nausea: No Vomiting: No Complications Anesthesia Complication: No
--- NOTE | 2024-07-27 18:41 | PCM.POSTANE2 ---
Anesthesia Postop Eval I Sum Postop Eval Completion status Anesthesia document: Postop Eval 1 completed: Yes Anesthesia Postop Eval I Summary Anesthesia Postop Eval I Summary: Anesthesia Postop Eval I: Assessment Summary Airway patent Yes 07/27/24 14:37 WELDER FITTER [email or web address] Spontaneous unlabored Yes 07/27/24 14:37 WELDER FITTER ARC.GDOTT respirations Mental status Awake,Calm 07/27/24 14:37 WELDER FITTER [email or web address].GDOTT nausea No 07/27/24 14:37 WELDER FITTER ARC.GDOTT Vomiting No 07/27/24 14:37 WELDER FITTER ARC.GDOTT Anesthesia Postop Eval I: Fluid Summary Crystalloid volume administer 1,400 07/27/24 14:37 WELDER FITTER ARC.GDOTT (ml) Colloids volume administered ( ml) Blood Product volume administered (ml) Total IV fluid infused 1,400 07/27/24 14:37 WELDER FITTER ARC.GDOTT Anesthesia Postop Eval I: Summary Notes Anesthesia Complication No 07/27/24 14:37 WELDER FITTER ARC.GDOTT Anesthesia Complication Comment: Post-operative progress note Anesthesia: Postop Eval II Evaluation Mental status: Awake Pain Level: 0 nausea: No Vomiting: No Complications Anesthesia Complication: No
== END 2024-07-27 17:46 | disposition home or self-care (01) ==
LOC: SDC 08:06 → AC 08:06
PROVIDERS: PCP Family Medicine; Referring Provider Obstetrics & Gynecology; Visit Provider Obstetrics & Gynecology
PROC: 0UT9FZZ Resection of Uterus, Via Natural or Artificial Opening With Percutaneous Endoscopic Assistance (ICD-10-PCS; CPT 58553; principal; 2024-07-27 10:00)
DX: D25.2 Subserosal leiomyoma of uterus (principal); N92.0 Excessive and frequent menstruation with regular cycle; E78.00 Pure hypercholesterolemia, unspecified; F17.210 Nicotine dependence, cigarettes, uncomplicated; N85.2 Hypertrophy of uterus; I47.19 Other supraventricular tachycardia; E66.9 Obesity, unspecified; Z79.899 Other long term (current) drug therapy
CPT/HCPCS: 58553; 36415; 80048; 82962; 83735; 84439; 84443; 85025; 86376; 86850; 86900; 86901; 88307; 88341; 88342; 93005; J2405